=== PATIENT | male | born 1960 | race Caucasian/White ===

== ENCOUNTER 2017-02-26 00:04 | Inpatient (IN) | payer SELFPAY ==
[2017-02-26] VITALS (9 sets, daily range): BP systolic 111–158; BP diastolic 62–85
[~2017-02-26] VITALS: Ht 175.3 cm; Wt 84.1 kg
--- NOTE | ~2017-02-26 | O ---
[place], [place] OPERATIVE NOTE NAME: NELL RAMOS UNIT #: [id number] ROOM: 521 DOCTOR: FINN BEAN PRIYA BIRTHDATE: [birth year] DOS: 02/26/2017 SURGEON: Larry Goldman DPM SERVICE CENTER COORDINATOR: Ranjit Bean DPM resident. 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 PROCEDURES PERFORMED: 1. Incision and drainage of abscess with hallux amputation, right foot. 2. Bone debridement, biopsy, right foot. ANESTHESIA: Local with IV sedation. ESTIMATED BLOOD LOSS: 50 mL. INJECTABLES: None. SPECIMENS: First metatarsal bone sent to pathology and microbiology for further evaluation, proximal base of right hallux sent to pathology microbiology and soft tissue sent to culture and pathology for further evaluation. COMPLICATIONS: None. CONDITION: Stable. INDICATIONS FOR PROCEDURE: This is a 57-year-old male who presented to the emergency department earlier this morning. The patient states he stubbed his toe 3 days ago and started to notice that his toe was becoming black and necrotic. X-rays demonstrated soft tissue emphysema and gas to the first interspace of the right foot. Surgical intervention was deemed necessary. I explained to the patient about the risks, benefits and complications of the procedure. The patient understands and agrees with above. The benefits of removing the infection was greater knee than assessing blood flow at this time. Vascular studies are ordered and will be performed tomorrow. DESCRIPTION OF PROCEDURE: With mild sedation, the patient was transferred from preoperative holding to the operating room and placed on the operating table in supine position. IV sedations anesthesia department. The right lower extremity was then scrubbed, prepped and draped in the usual sterile fashion. Timeout was performed to verify correct patient, procedure and extremity and the following procedure was performed. Attention was directed to the right hallux. The right hallux appeared to be necrotic and black with foul odor noted and localized cellulitis to the right foot. At this time, a fishmouth incision was performed with a #15 blade. It was full thickness in nature and circumferentially around the right hallux. The [place], [place] OPERATIVE NOTE NAME: NELL RAMOS UNIT #: [id number] ROOM: 521 DOCTOR: FINN BEAN, RANJIT BIRTHDATE: [birth year] right toe was disarticulated from the first metatarsal head. At this time, purulent drainage and malodor was noted from the first interspace of the right foot with dusky dark discoloration of tissue was noted as well at the first interspace. Next, utilizing a rongeur, the right hallux bone was sent to pathology and cultured for further evaluation. Next, attention was directed to the amputation site. The first metatarsal head appeared clean, healthy in nature. The cartilage was white and did not have any discoloration noted. At this time, utilizing a rongeur, a portion was sent to path and microbiology for further evaluation. Soft tissue was also sent to pathology and microbiology for further evaluation. Next utilizing 6 liters of saline and gentamicin combined was performed with cysto-tubing to flush out the wound. The wound was then evaluated and compressed. No purulent drainage was noted from the surgical site, the soft tissues appeared to be clean and healthy at this time. Next, retention sutures were placed at the dorsal aspect of the foot with 2-0 Prolene. The surgical site was packed with Betadine solution and 4 x 4s and wrapped with ABDs, Kerlix and Elier wrap. The patient was transferred from operating to PACU with vital signs stable and vascular status intact. He will be returning up to the floor. We planned for delayed primary closure on Monday, pending micro and path results. At this time, he is to be nonweightbearing to the right lower extremity. Recommend infectious disease consult and appreciate recommendations. Continue antibiotics on the floor at this time. We will continue to follow. RANJIT BEAN DPM LARRY GOLDMAN DPM CM:OPRECORD:OPERATIVE NOTE [id number] RANJIT BEAN DPM 02/26/17 1403 interface
--- NOTE | ~2017-02-26 | PR ---
[place], [place] PROGRESS NOTE NAME: NELL RAMOS UNIT #: [id number] ROOM: 521 DOCTOR: JENNIFER PARK DPM BIRTHDATE: [birth year] DOS: 02/27/2017 SUBJECTIVE: The patient is seen status post amputation of right great toe. He states he feels better. Denies fever, chills, nausea, vomiting or night sweats. He had the surgery yesterday. OBJECTIVE: EXTREMITIES: Bandages in place. There is no bleeding or strikethrough drainage noted. Minimal tenderness to palpation. LABORATORY DATA: White blood cell count is down to 11.1 this morning. ASSESSMENT: Status post amputation of right great toe, 1 day postop. PLAN: I discussed with the patient we will maintain the bandage, should be changed in the next day or so. The patient is feeling better, feeling well, only with some mild pain. Continue with antibiotics per Infectious Disease and followup with the patient tomorrow. JENNIFER PARK DPM CM:PNTRANS [id number] JENNIFER PARK DPM 02/27/17 1305 interface
--- NOTE | ~2017-02-26 | PR ---
[place], [place] PROGRESS NOTE [facility]: [facility]OS [id number] UN[facility] #: [id number] ROOM: 521 DOCTOR: BRITTNI BRUMFIELD DPM BIRTHDATE: [birth year] DOS: 02/28/2017 SUBJECTIVE: The patient presents postop day 2 amputation of the right great toe. The patient is resting comfortably in bed with no pain. OBJECTIVE: The dressing is intact with no breakthrough bleeding. The dressing was left intact per Dr. Stahl's orders. The patient has scheduled delayed closure tomorrow. ASSESSMENT: Post incision and drainage with amputation of toe, right hallux. PLAN: Discussed case with Dr. Reyes. She will write the orders for surgery tomorrow, n.p.o. after midnight and the patient will have delayed closure performed tomorrow by Dr. Stahl and Dr. Reyes. BRITTNI BRUMFIELD DPM CM:PNTRANS [id number] BRITTNI BRUMFIELD DPM 02/28/17 1520 interface
--- NOTE | ~2017-02-26 | PR ---
[place], [place] PROGRESS NOTE NAME: NELL RAMOS UNIT #: [id number] ROOM: 521 DOCTOR: BRITTNI BRUMFIELD DPM BIRTHDATE: [birth year] DOS: SUBJECTIVE: The patient presents postop first ray amputation with delayed primary closure. The patient is resting comfortably in bed without pain. OBJECTIVE: The dressing is intact with no breakthrough bleeding. No signs of complication. Negative Homans sign. IMPRESSION: Postop right foot. PLAN: Dressing kept intact per Dr. Goldman orders. The patient will be discharged via clearance by Infectious Disease and Internal Medicine. The patient can be discharged from Podiatry standpoint and will reappoint at the office postoperatively. BRITTNI BRUMFIELD DPM CM:CHANNING [phone] BRITTNI BRUMFIELD DPM 03/02/172156 interface
--- NOTE | ~2017-02-26 | CON ---
[place], [place] REPORT OF CONSULTATION NAME: NELL RAMOS UNIT #: [id number] ROOM: 521 DOCTOR: FINN BEAN PRIYA BIRTHDATE: [birth year] DOS: 02/26/2017 HISTORY OF PRESENT ILLNESS: This is a 57-year-old male who presented to ED last night complaining of nonhealing right great toe. He states that he hit his toe against a bathtub on Monday and ____ to bleed. He applied antibiotic ointment and gauze and tape and took ibuprofen for pain. He denies any pain, but noticed that the toe started to become black. He denies any history of diabetes, but had been diabetic about 20 years ago. He has not been followed up since. He does not follow up with any family and consumer science professor or any other medical physicians at this time. PAST MEDICAL HISTORY: Diabetes mellitus, history of tobacco use. PAST SURGICAL HISTORY: History of femoral fracture. SOCIAL HISTORY: Admits to tobacco use. Denies illicit drug use. Consumes alcohol occasionally. ALLERGIES: No known drug allergies. REVIEW OF SYSTEMS: GENERAL: No fever, chills, nausea, vomiting. HEENT: Denies vision change, blurred vision, nose congestion, throat pain. CARDIOVASCULAR: There is lower extremity edema. Denies chest pain. Denies palpitations. RESPIRATORY: Denies shortness of breath. Denies cough, hemoptysis, wheezing or sputum production. ABDOMINAL: Denies abdominal pain, nausea, vomiting, diarrhea, constipation. GENITOURINARY: Denies dysuria, hematuria, increased frequency or urgency. NEUROLOGIC: Admits to decreased sensation to bilateral lower extremities. Denies lightheadedness or dizziness. PSYCHIATRIC: Reports substance abuse. Denies depression, anxiety. ENDOCRINE: Denies polydipsia, heat intolerance. Denies cold intolerance. SKIN: Admits to ulceration to the right big toe. PHYSICAL EXAMINATION: VITAL SIGNS: Temperature 98.6, pulse 84, respiration 16, blood pressure 134/62. LABORATORY DATA: White count 13.5, hemoglobin 13.5, hematocrit 39.4, platelets 312. FOCUSED PHYSICAL EXAMINATION. VASCULAR: DP and PT pulses are palpable bilateral. CFT is less than 3 seconds to remaining digits 1 through 5 bilateral. Hair is not present to bilateral lower extremities. Skin is warm to warm from the tibial tuberosity to distal digits bilateral. NEUROLOGIC: Decreased sensation noted with [place]ron monofilament to digits 1 through 5 bilateral. Protective sensation is diminished to digits bilateral. Normal muscle tone and symmetry noted to bilateral extremities. MUSCULOSKELETAL: Decreased ankle joint range of motion consistent with equinus [place], [place] REPORT OF CONSULTATION NAME: NELL RAMOS UNIT #: [id number] ROOM: 521 DOCTOR: FINN BEAN PRIYA BIRTHDATE: [birth year] deformity noted. No pain on palpation to the right great toe. DERMATOLOGIC: There is a full thickness ulceration noted to the medial and plantar aspect of the right great toe upon compression. There is seropurulent drainage noted. The toe is necrotic, black in nature. There is positive malodor and positive purulent drainage. There is localized periwound cellulitis noted to the dorsal aspect of the right foot. Positive crepitus and fluctuance noted to the right great toe. DIAGNOSTIC STUDIES: Foot x-rays, soft tissue swelling to great toe noted with soft tissue emphysema. No acute findings of osteomyelitis noted. CT scan demonstrates ulceration to plantar margin of the first digit with evidence of extensive cellulitis and soft tissue gas extending along the plantar aspect of the first digit as well as medial and lateral aspects, compatible with soft tissue gas forming infection. ASSESSMENT: 1. Gas gangrene, right hallux with possible osteomyelitis. 2. Uncontrolled diabetes mellitus with peripheral neuropathy. 3. History of tobacco user. PLAN: 1. The patient is seen and examined. 2. Keep the patient n.p.o. 3. Plan for surgical intervention today at 11:00 a.m. 4. Plan for incision and drainage of deep space abscess with hallux amputation and possible first ray resection. 5. Recommend Infectious Disease consult. 6. Nonweightbearing to the right lower extremity. 7. We will continue to follow on the floor. 8. Discussed with ____ who agrees with above assessment and plan. RANJIT BEAN DPM CM:CONSTR:REPORT OF CONSULTATION 1103 02/26/171922 interface
--- NOTE | ~2017-02-26 | O ---
[place], [place] OPERATIVE NOTE NAME: NELL RAMOS UNIT #: [id number] ROOM: 521 DOCTOR: FINN REYES PRIYA BIRTHDATE: [birth year] DOS: 03/01/2017 SURGEON: Larry Goldman DPM. BUSINESS RISK ANALYST: Ranjit Reyes DPM, resident. PREOPERATIVE DIAGNOSIS: Osteomyelitis, right foot. POSTOPERATIVE DIAGNOSIS: Osteomyelitis, right foot. PROCEDURE PERFORMED: Partial first ray amputation with delayed primary closure, right foot, ANESTHESIA: LMAC. SPECIMENS: First metatarsal head sent to pathology for further evaluation, clean margin sent to pathology for further evaluation. ESTIMATED BLOOD LOSS: 10 mL. INJECTABLES: None. MATERIALS USED: 3-0 Vicryl, 3-0 Prolene. CONDITION: Stable. COMPLICATIONS: None. INDICATIONS FOR PROCEDURE: This is a 57-year-old male who underwent hallux amputation earlier this week. The patient's white count has been trending down. Vitals are stable. His surgical cultures grew out MSSA and Providencia. He is now stabilized for a delayed primary closure with partial first ray amputation. DESCRIPTION OF PROCEDURE: At this time, the patient was transferred from preoperative holding area to the operating room and placed on the operating table in supine position. IV sedation was administered by Anesthesia. Prior to taking the patient in the operating room, the consent form was signed, obtained and reviewed. The patient agrees to procedure and understands the benefits, risks and complications of procedure. At this time, the timeout performed to verify correct patient, procedure and extremity and the following procedure was performed. Attention was directed to the open surgical wound of the right lower extremity where the first metatarsal head was exposed. At this time, utilizing 15 blade, the first metatarsal head was freed up. Next, using power sagittal saw, a first metatarsal head osteotomy was performed from placed on back table. Next, sagittal saw was used to remove another piece of bone to send as clear margin for pathology to evaluate. At this time, no active signs of infection were noted. There was no purulent drainage or malodor. The soft tissues appeared to be ____. The skin edges were freshened up with a #15 blade. At this time, the [place], [place] OPERATIVE NOTE NAME: NELL RAMOS UNIT #: [id number] ROOM: 521 DOCTOR: FINN REYES, RANJIT BIRTHDATE: [birth year] surgical site was flushed with copious amounts of sterile saline. Closure was warranted at this time. A 3-0 Vicryl as was utilized to close the deep structures, 3-0 Prolene was used in horizontal mattress in simple suture fashion. Dressings consisted of Xeroform, 4 x 4's, Kerlix and Elier bandage. The patient was transferred from OR to PACU with vital stable and vascular status intact. He returned back to the floor. He is okay to discharge from Podiatry standpoint at this time. He is to be nonweightbearing to right lower extremity. Appreciate infectious disease recommendations for antibiotic coverage and we will continue on the floor. RANJIT REYES DPM CM:OPRECORD:OPERATIVE NOTE [id number] RANJIT REYES DPM 03/02/17 0313 interface
[2017-02-26 01:16] LABS: HEMATOCRIT 39.5 % (42.0-52.0); HEMOGLOBIN 14.2 g/dl (14.0-18.0); MEAN CELL VOLUME 85.1 fl (80.0-94.0); MEAN CORPUSCULAR HGB 30.6 pg (27.0-31.0); MEAN CORPUSCULAR HGB CONC 35.9 g/dl (33.0-37.0); MEAN PLATELET VOLUME 9.3 fl (9.6-12.3); PLATELET COUNT AUTOMATED 310 10*3/uL (130-400); RED BLOOD COUNT 4.64 10*6/uL (4.50-5.90); RED CELL DISTRI WIDTH 11.6 % (0-14.5); WHITE BLOOD COUNT 13.4 10*3/uL (4.8-10.8)
[2017-02-26 01:32] LABS: ALBUMIN 2.7 gm/dl (3.1-4.5); ALKALINE PHOSPHATASE 119 U/L (45-117); BUN 12 mg/dl (7-24); CHLORIDE 98 mmol/L (98-107); CREATININE 0.84 mg/dL (0.70-1.30); POTASSIUM 3.5 mmol/L (3.5-5.1); SGOT/AST 10 IU/L (3-35); SGPT/ALT 12 U/L (12-78); SODIUM 137 mmol/L (136-145); TOTAL PROTEIN 6.7 gm/dL (6.4-8.2)
[2017-02-26 01:38] LABS: ATYPICAL LYMPHS 1 % (0-0); PLATELET SUFFICIENCY NORMAL (NORMAL); TOTAL CELLS COUNTED 100 #CELLS
[2017-02-26 01:44] LABS: TROPONIN I < 0.015 ng/ml (<0.045)
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
[2017-02-26 05:00] LABS: HEMATOCRIT 39.4 % (42.0-52.0); HEMOGLOBIN 13.5 g/dl (14.0-18.0); MEAN CELL VOLUME 85.3 fl (80.0-94.0); MEAN CORPUSCULAR HGB 29.2 pg (27.0-31.0); MEAN CORPUSCULAR HGB CONC 34.3 g/dl (33.0-37.0); MEAN PLATELET VOLUME 9.2 fl (9.6-12.3); PLATELET COUNT AUTOMATED 312 10*3/uL (130-400); RED BLOOD COUNT 4.62 10*6/uL (4.50-5.90); RED CELL DISTRI WIDTH 11.6 % (0-14.5); WHITE BLOOD COUNT 13.5 10*3/uL (4.8-10.8)
[2017-02-26 05:11] LABS: ACT PARTIAL THROMBO TIME 22.4 SECONDS (20.8-31.5)
[2017-02-26 05:18] LABS: ALBUMIN 2.5 gm/dl (3.1-4.5); ALKALINE PHOSPHATASE 116 U/L (45-117); BUN 13 mg/dl (7-24); CHLORIDE 100 mmol/L (98-107); CHOLESTEROL 153 mg/dL (<200); FREE T4 1.56 ng/dl (0.76-1.46); HDL CHOLESTEROL 25 mg/dl (40-60); LDL CHOLESTEROL 101 mg/dL (9-159); PHOSPHOROUS 2.6 mg/dL (2.5-4.9); POTASSIUM 3.6 mmol/L (3.5-5.1); SGOT/AST 5 IU/L (3-35); SGPT/ALT 12 U/L (12-78); SODIUM 138 mmol/L (136-145); TOTAL PROTEIN 6.6 gm/dL (6.4-8.2); TRIGLYCERIDES 134 mg/dl (<150); VLDL CHOLESTEROL 27 mg/dL (6-40)
[2017-02-26 05:20] LABS: PLATELET SUFFICIENCY NORMAL (NORMAL); TOTAL CELLS COUNTED 100 #CELLS
--- NOTE | 2017-02-26 07:00 | NUR ---
Shift chart check completed.
--- NOTE | 2017-02-26 07:09 | NUR ---
DR BRAGG NOTIFIED OF CONSULT. POSSIBLE SURGERY DURING LATE AM.
--- NOTE | 2017-02-26 08:00 | NUR ---
MED REC UPDATED - PATIENT TAKES NO HOME MEDICATIONS - HAS NOT SEEN A DOCTOR IN OVER 20 YEARS
--- NOTE | 2017-02-26 08:23 | NUR ---
MAINTENANCE IVF FLUIDS INFUSING AFTER CT FOOT DONE. IV ANTIBIOTICS INFUSING. PATIENT HAS NO FEELING IN THE FOOT. DRESSING APPLIED ON NIGHT TURN REMAINS INTACT. SOME NUMBNESS TO BILAT HANDS. VSS. POSSIBLE SURGERY THIS AM PER DR DYE.
[2017-02-26 08:56] LABS: VITAMIN D, 25-HYDROXY 19.9 ng/mL (30-100)
--- NOTE | 2017-02-26 09:11 | NUR ---
FINAL REPORT RECEIVED FROM [facility]. SCHEDULED FOR SURGERY FOR TODAY @ 1100.
--- NOTE | 2017-02-26 09:37 | NUR ---
READY FOR SURGERY. PATIENT SPOKE WITH HIS DAUGHTER AND SHE IS AWARE OF SURGERY.
--- NOTE | 2017-02-26 10:28 | NUR ---
MAGGIEICLEANSE BATH DONE & BED CHANGED. TUBIGRIPS TO BILAT LEGS. IV started right hand with #22 protective cath after 1 attempts. Site prepped with Chloroprep. Sterile dressing applied. Patient tolerated procedure well. LEFT BALL OF FOOT HAS HARD CALLOUS & SOME DRY SKIN TO SURROUNDING AREA THAT PER THE PATIENT " I GET THAT ALL THE TIME FROM MY BOOTS." NO SIGNS OF REDNESS/DRAINAGE. RT GREAT TOE HAS FOUL ODOR W/ SCANT BLOODY FROM UNDERSIDE OF GREAT TOE. TIP OF THE TOE TO MID JOINT AND ABOUT HALF OF WIDTH IS A MILKY SCHWARZ COLORED SKIN. REST OF TOP OF TOE IS BLACK/NECROTIC. FROM JOINT TO @ 3CM DOWN FOOT (ALL ACROSS TOP OF FOOT) IS RED & WARM. BOTTOM OF FOOT IS NORMAL COLOR. PER THE PATIENT HE HAS MINIMAL FEELING TO IT. MARCUS BOURNE
--- NOTE | 2017-02-26 11:03 | NUR ---
PATIENT TO SURGERY VIA BED WITH SIGNIFICANT OTHER & 1 OTHER PRESENT. REPORT TO OR STAFF & POST PICTURES PRIOR TO DRESSING THE WOUND REQUESTED.
--- NOTE | 2017-02-26 12:52 | NUR ---
REPORT RECEIVED FROM SURGERY & THEY ALREADY TOOK THE PATIENT TO THE 5TH FLOOR
--- NOTE | 2017-02-26 13:05 | NUR ---
RECIEVED FROM OR AFTER RIGHT GREAT TOE AMPUTATION. DRESSING DRY AND INTACT. PT DENIES PAIN. WILL CONTINUE TO MONITOR.
--- NOTE | 2017-02-26 13:27 | NUR ---
DR EPREZ ANSWERING SERVICE NOTIFIED OF CONSULT.
--- NOTE | 2017-02-26 13:40 | NUR ---
DR PEREZ RETURNED CALLED AND NOTIFIED OF CONSULT.
--- NOTE | 2017-02-26 17:37 | NUR ---
MEDICATED PO NORCO FOR C/O PAIN IN RIGHT FOOT. PT RATES PAIN 10/10. WILL CONTINUE TO MONITOR.
--- NOTE | 2017-02-26 18:35 | NUR ---
PT STATES NORCO EFFECTIVE FOR PAIN.
--- NOTE | 2017-02-26 20:20 | NUR ---
MEDICATED WITH TYLENOL PER PRN ORDER FOR C/O HEADACHE.
--- NOTE | 2017-02-26 22:00 | NUR ---
TYLENOL EFFECTIVE FOR HEADACHE
[2017-02-27] VITALS: BP 135/66
[2017-02-27 06:25] LABS: BASO % 0.4 % (0.0-1.0); EOS # 0.2 10*3/uL (0.0-0.4); EOS % 1.6 % (1.0-4.0); HEMATOCRIT 35.2 % (42.0-52.0); HEMOGLOBIN 12.1 g/dl (14.0-18.0); LYMPH # 2.4 10*3/uL (1.3-4.4); LYMPH % 21.3 % (27.0-41.0); MEAN CELL VOLUME 86.9 fl (80.0-94.0); MEAN CORPUSCULAR HGB 29.9 pg (27.0-31.0); MEAN CORPUSCULAR HGB CONC 34.4 g/dl (33.0-37.0); MONO # 1.3 10*3/uL (0.1-1.0); MONO % 11.6 % (3.0-9.0); NEUT # 7.2 10*3/uL (2.3-7.9); NEUT % 64.4 % (47.0-73.0); PLATELET COUNT AUTOMATED 310 10*3/uL (130-400); RED BLOOD COUNT 4.05 10*6/uL (4.50-5.90); RED CELL DISTRI WIDTH 11.8 % (0-14.5); WHITE BLOOD COUNT 11.1 10*3/uL (4.8-10.8)
[2017-02-27 06:43] LABS: ALBUMIN 2.2 gm/dl (3.1-4.5); ALKALINE PHOSPHATASE 78 U/L (45-117); BUN 6 mg/dl (7-24); CHLORIDE 103 mmol/L (98-107); CREATININE 0.62 mg/dL (0.70-1.30); MAGNESIUM 1.8 mg/dL (1.5-2.1); PHOSPHOROUS 2.4 mg/dL (2.5-4.9); POTASSIUM 3.6 mmol/L (3.5-5.1); SGOT/AST 10 IU/L (3-35); SGPT/ALT 11 U/L (12-78); SODIUM 138 mmol/L (136-145); TOTAL PROTEIN 5.8 gm/dL (6.4-8.2)
[2017-02-27 08:00] VITALS: BP 120/58
--- NOTE | 2017-02-27 08:00 | NUR ---
PATIENT RADIOLOGY FOR ULTRASOUND.
--- NOTE | 2017-02-27 09:00 | NUR ---
Mold Yard Worker in to talk to patient. Patient states lives at home with girlfriend. There are few steps in the home. 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 case management will follow for any home needs. MEENA MEJIA
--- NOTE | 2017-02-27 10:00 | NUR ---
AM MEDS TAKEN.
--- NOTE | 2017-02-27 10:09 | NUR ---
PHYSICAL THERAPY Physical Therapy Evaluation completed this date. See eval document for complete details. Will begin PT intervention to address the impairments of decreased transfer safety and difficulty ambulating during inpnt stay. Recommend home as able on d/[place] [id number] based on chart review and PT eval. Danelle Ibarra, PT
--- NOTE | 2017-02-27 11:18 | NUR ---
Nutritional Support Services Note: Discussing with pt 1800cal diabetic diet. Diet copy given to pt. Pt was told he was a borderline diabetic 20 years ago and never followed through. Encouraged proper portion sizes and healthier choices on a daily basis. Pt listened. No questions at this time. Encouraged follow up if needed. Lesley Miranda
[2017-02-27 12:00] VITALS: BP 100/40; BP 140/76
--- NOTE | 2017-02-27 12:53 | NUR ---
PHYSICAL THERAPY Sam was seen this PM 1:1 for his therapy session, present. Sam ask if i could come back tomorrow that he's just to tired to go again now and just did not want to go. Said that he would get up tomorrow. KIM WYMAN [employer] COUNSELOR.
--- NOTE | 2017-02-27 14:52 | NUR ---
MEDICATED WITH NORCO FOR RIGHT FOOT PAIN.
[2017-02-27 16:00] VITALS: BP 146/70
--- NOTE | 2017-02-27 16:00 | NUR ---
NO FURTHER COMPLAINTS OF PAIN.
[2017-02-27 20:00] VITALS: BP 136/70
--- NOTE | 2017-02-27 23:28 | NUR ---
PATIENT RESTING IN BED WITH NO NEEDS MADE. ANTIBIOTICS INFUSING WITHOUT DIFFICULTY. BED IN LOWEST POSITION, CALL LIGHT IN REACH
[2017-02-28] VITALS: BP 137/72
[2017-02-28 06:20] LABS: BASO % 0.4 % (0.0-1.0); EOS # 0.2 10*3/uL (0.0-0.4); HEMATOCRIT 36.7 % (42.0-52.0); HEMOGLOBIN 12.7 g/dl (14.0-18.0); LYMPH # 2.8 10*3/uL (1.3-4.4); LYMPH % 29.2 % (27.0-41.0); MEAN CELL VOLUME 85.7 fl (80.0-94.0); MEAN CORPUSCULAR HGB 29.7 pg (27.0-31.0); MEAN CORPUSCULAR HGB CONC 34.6 g/dl (33.0-37.0); MONO % 10.8 % (3.0-9.0); NEUT # 5.5 10*3/uL (2.3-7.9); NEUT % 56.9 % (47.0-73.0); PLATELET COUNT AUTOMATED 327 10*3/uL (130-400); RED BLOOD COUNT 4.28 10*6/uL (4.50-5.90); RED CELL DISTRI WIDTH 11.8 % (0-14.5); WHITE BLOOD COUNT 9.6 10*3/uL (4.8-10.8)
[2017-02-28 06:46] LABS: ALBUMIN 2.3 gm/dl (3.1-4.5); BUN 5 mg/dl (7-24); CHLORIDE 101 mmol/L (98-107); POTASSIUM 3.6 mmol/L (3.5-5.1); SGPT/ALT 12 U/L (12-78); SODIUM 138 mmol/L (136-145)
[2017-02-28 06:48] LABS: ALKALINE PHOSPHATASE 90 U/L (45-117); CREATININE 0.69 mg/dL (0.70-1.30); SGOT/AST 10 IU/L (3-35); TOTAL PROTEIN 6.5 gm/dL (6.4-8.2)
[2017-02-28 08:00] VITALS: BP 142/70
--- NOTE | 2017-02-28 09:00 | NUR ---
case management visits with patient, patient having a surgery tomorrow, case management will follow
--- NOTE | 2017-02-28 09:08 | NUR ---
PHYSICAL THERAPY Sam seen this AM 1:1 for his therapy session. Pt supine in bed, transfer supine/sit, sitting balance independent, sit/stand, standing balance with standard walker MIN A X 1. Followed by gait total 50' X 1, with S/W, Pt has IV Pole, and did well with NWB right LE and CGA X 1, no LOB with verbal cueing for gait, walker turn safety. Prepared Pt room for up in his bedside chair, call light, phone and having no complaiont. KIM WYMAN PATIENT PLACEMENT COORDINATOR.
--- NOTE | 2017-02-28 10:00 | NUR ---
AM MEDS TAKEN.
[2017-02-28 12:00] VITALS: BP 151/71
--- NOTE | 2017-02-28 14:05 | NUR ---
RESTING WITH NO DISTRESS. DRESSING TO RIGHT FOOT DRY AND INTACT.
[2017-02-28 16:00] VITALS: BP 145/74
[2017-02-28 16:02] VITALS: BP 140/75
--- NOTE | 2017-02-28 19:35 | NUR ---
PT MEDICATED WITH PO NORCO PER PRN ORDER FOR C/O RIGHT FOOT PAIN. WILL MONITOR EFFECTIVENESS. CALL LIGHT LEFT IN REACH.
--- NOTE | 2017-02-28 19:36 | NUR ---
PATIENT REQUESTED AND RECEIVED PO NORCO PER PRN ORDER FOR C/O RIGHT FOOT PAIN 11/21. WILL MONITOR EFFECTIVENESS. CALL LIGHT LEFT IN REACH.
--- NOTE | 2017-02-28 19:41 | NUR ---
SPOKE TO AT THIS TIME. PER , PATIENT TO HAVE SURGERY TOMORROW AT NOON. NEW ORDERS RECEIVED.
[2017-02-28 20:00] VITALS: BP 133/84
--- NOTE | 2017-02-28 20:11 | NUR ---
EARLIER MEDICATION EFFECTIVE PER PATIENT. WILL CONTINUE TO MONITOR. CALL LIGHT LEFT IN REACH.
[2017-03-01] VITALS (8 sets, daily range): BP systolic 101–170; BP diastolic 55–93
--- NOTE | 2017-03-01 03:01 | NUR ---
PATIENT ASLEEP IN BED AT THIS TIME. RESPIRATIONS EASY. NO S/S OF DISTRESS NOTED. WILL MONITOR. CALL LIGHT IN REACH.
--- NOTE | 2017-03-01 03:41 | NUR ---
SPOKE TO REGARDING ORDER FOR BSG CHECKS. CURRENTLY ORDERED Q4H. PER , NICOLE TO CHANGE TO [facility].
[2017-03-01 06:20] LABS: BASO % 0.3 % (0.0-1.0); EOS # 0.2 10*3/uL (0.0-0.4); EOS % 1.9 % (1.0-4.0); HEMATOCRIT 37.8 % (42.0-52.0); LYMPH % 23.2 % (27.0-41.0); MEAN CELL VOLUME 84.8 fl (80.0-94.0); MEAN CORPUSCULAR HGB 29.1 pg (27.0-31.0); MEAN CORPUSCULAR HGB CONC 34.4 g/dl (33.0-37.0); MEAN PLATELET VOLUME 8.7 fl (9.6-12.3); NEUT # 5.5 10*3/uL (2.3-7.9); NEUT % 62.9 % (47.0-73.0); PLATELET COUNT AUTOMATED 325 10*3/uL (130-400); RED BLOOD COUNT 4.46 10*6/uL (4.50-5.90); RED CELL DISTRI WIDTH 11.6 % (0-14.5); WHITE BLOOD COUNT 8.7 10*3/uL (4.8-10.8)
[2017-03-01 06:51] LABS: BUN 5 mg/dl (7-24); CHLORIDE 101 mmol/L (98-107); CREATININE 0.63 mg/dL (0.70-1.30); POTASSIUM 3.8 mmol/L (3.5-5.1); SODIUM 139 mmol/L (136-145)
--- NOTE | 2017-03-01 09:00 | NUR ---
case management visits with patient, patient denies any home needs at this time
--- NOTE | 2017-03-01 09:28 | NUR ---
PHYSICAL THERAPY Pt seen this AM 1:1 and was up in his bedside chair. Transfer sit/stand supervision X 1. Gait total 55' X 1, with standard walker and CG X 1, no LOB with NWB right foot no LOB. KIM WYMAN COIL WINDER STRAP.
--- NOTE | 2017-03-01 11:18 | NUR ---
PATIENT TO OR VIA BED.
--- NOTE | 2017-03-01 13:12 | NUR ---
RECEIVED REPORT FROM OR.
--- NOTE | 2017-03-01 13:31 | NUR ---
PATIENT RETURNED FROM OR.
--- NOTE | 2017-03-01 18:14 | NUR ---
PATIENT RESTING. DRESSING TO RIGHT FOOT DRY AND INTACT.
--- NOTE | 2017-03-01 18:54 | NUR ---
MEDICATED FOR RIGHT FOOT PAIN HE RATES A 6 ON THE PAIN SCALE.
--- NOTE | 2017-03-01 20:05 | NUR ---
PATIENT IS AWAKE, ALERT AND ORIENTED X3. PLEASANT AND COOPERATIVE WITH ASSESSMENT. LUNGS ARE DIMINISHED THROUGHOUT LUNGFIELDS. ROOM AIR. ABDOMEN IS OBESE, NORMOACTIVE BOWEL SOUNDS X 4 QUADS. NO EDEMA TO LLL, PPP. RIGHT LOWER EXTREMITY HAS A THICK BULKY CLEAN, DRY AND INTACT DRESSING. PER PATIENT HE IS HAVING SHARP STABBING PAIN LIKE LIGHTENING TO POST OP AREA, PRN MORPHINE GIVEN AT THIS TIME. CALL LIGHT IS IN REACH.
--- NOTE | 2017-03-01 21:05 | NUR ---
PATIENT RESTING IN BED WITH EYES CLOSED BILATERALLY. RESPITATIONS ARE EASY AND REGULAR. NO S/S OF PAIN OR DISOCMFORT. MORPHINE EFFECTIVE AT THIS TIME. CALL LIGHT IS IN REACH.
--- NOTE | 2017-03-01 23:14 | NUR ---
YARIELLATA STATES THAT HE IS HAVING THAT SHARP PAIN AGAIN IN HIS RIGHT FOOT POST OP REGION, DESCRIBES PAIN SHOOTING, RATES THIS PAIN A 7/10 ON PAIN SCALE. PRN NORCO GIVEN AT THIS TIME. CALL LIGHT IS IN REACH.
[2017-03-02] VITALS: BP 117/72
--- NOTE | 2017-03-02 02:47 | NUR ---
PATIENT REQUESTED PAIN MEDICATION FOR C/O PAIN IN HIS RIGHT GREAT TOE REGION , POST OP, RATES HIS PAIN A 8/10 ON PAIN SCALE. DESCRIBES PAIN THROBBING AND SHARP. PRN MORPHINE GIVEN AT THIS TIME. CALL LIGHT IS IN REACH.
--- NOTE | 2017-03-02 03:45 | NUR ---
PATIENT RESTING IN BED WITH EYES CLOSED BILATERALLY. RESPIRATIONS ARE EASY AND REGULAR. NO S/S OF PAIN OR DISCOMFORT. MORPHINE EFFECTIVE AT THIS TIME. CALL LIGHT IS IN REACH.
--- NOTE | 2017-03-02 06:00 | NUR ---
PATIENT AROUSES EASILY FOR BEDSIDE GLUCOSE CHECK AT THIS TIEM. PATIENT VERBALIZED C/O PAIN IN HIS RIGHT GREAT TOE POST OP AREA. PATIENT DESCRIBES THIS PAIN SHARP AND THROBBING. RATES HIS PAIN 7/10 ON PAIN SCALE. PRN NORCO GIVEN AT THIS TIME. CALL LIGHT IS IN REACH.
[2017-03-02 06:47] LABS: HEMATOCRIT 37.1 % (42.0-52.0); HEMOGLOBIN 12.7 g/dl (14.0-18.0); MEAN CELL VOLUME 85.1 fl (80.0-94.0); MEAN CORPUSCULAR HGB 29.1 pg (27.0-31.0); MEAN CORPUSCULAR HGB CONC 34.2 g/dl (33.0-37.0); MEAN PLATELET VOLUME 8.8 fl (9.6-12.3); PLATELET COUNT AUTOMATED 353 10*3/uL (130-400); RED BLOOD COUNT 4.36 10*6/uL (4.50-5.90); RED CELL DISTRI WIDTH 11.7 % (0-14.5); WHITE BLOOD COUNT 14.2 10*3/uL (4.8-10.8)
[2017-03-02 07:08] LABS: BASOPHILS 1 % (0-1); PLATELET SUFFICIENCY NORMAL (NORMAL); TOTAL CELLS COUNTED 100 #CELLS
[2017-03-02 07:34] LABS: BUN 9 mg/dl (7-24); CHLORIDE 100 mmol/L (98-107); CREATININE 0.71 mg/dL (0.70-1.30); POTASSIUM 3.6 mmol/L (3.5-5.1); SODIUM 138 mmol/L (136-145)
[2017-03-02 08:00] VITALS: BP 117/57
--- NOTE | 2017-03-02 08:46 | NUR ---
MORPHINE GIVEN PER MAR FOR C/O PAIN TO RIGHT FOOT/ TOE AMPUTATION.12/22.
--- NOTE | 2017-03-02 09:20 | NUR ---
PHYSICAL THERAPY Pt having his breakfast this therapy visit. KIM WYMAN LIVESTOCK SPECULATOR.
--- NOTE | 2017-03-02 10:49 | NUR ---
PT RETURNED TO FLOOR VIA WHEELCHAIR FROM PICC PLACEMENT PROCEDURE.
--- NOTE | 2017-03-02 10:51 | NUR ---
PHYSICAL THERAPY Back to treat Sam and Pt off the floor went down for his picc line. KIM WYMAN PIE BOTTOMER.
[2017-03-02 12:00] VITALS: BP 131/66
--- NOTE | 2017-03-02 12:30 | NUR ---
SPOKE TO BUSINESS OBJECTS AND STATED WE WHERE AWAITING DR DYE TO REMOVE POST OP DRESSING AND THAT I WILL GET ORDERS FOR DRESSING CHANGES AT THAT TIME AND PHOTOGRAPH HIS RIGHT FOOT.
--- NOTE | 2017-03-02 12:52 | NUR ---
PHYSICAL THERAPY Back this PM to see Jostin Vargas supine in bed. All transfers were independnet. Gait with standard walker and NWB right LE, 85' supervision X 1, no LOB and back supine in bed, family in. KIM WYMAN JALOUSIES INSTALLER.
--- NOTE | 2017-03-02 14:05 | NUR ---
DR CATALAN ROUNDED, NO NEW ORDERS. STATED HE WOULD ROUNMD AGAIN WITH DR Michael ALVAREZ.
[2017-03-02] MEDS ORDERED: CEFTRIAXON2 GM/50 ML IV (14:10)
--- NOTE | 2017-03-02 14:17 | NUR ---
PT WILL BE DC TODAY AND COME BACK TO [facility] DAILY AT 10AM FOR IV ROCEPHIN FOR 6 WEEKS. LORENE IN CENTRAL SCHEDULING NOTIFIED AND PAPERWORK AND SCRIPT FAXED TO HER. PT INFORMED AND WILL BE HERE TOMORROW AT 10AM.
--- NOTE | 2017-03-02 14:35 | NUR ---
Called to patients room to discuss process for medicaid. Provided patient and patients girlfriend at bedside an application as well as the website to apply for medicaid.
--- NOTE | 2017-03-02 15:08 | NUR ---
NOTIFIED DR CATALAN OF TISSUE RESULTS AND ADVISED HIM I HAD A D/C ORDER AND VOICED MY CONCERNS AND ALSO ADVISED WE WERE AWAITING DR DYE TO ROUND AND REMOVE POST OP DRESSING CHANGE ORDERS. EDUCATION REGARDING DRESSING CHANGES WILL NEED TO BE PROVIDED TO PRIOR TO D/C.
[2017-03-02] MEDS ORDERED: Vitamin D PO (15:37)
[2017-03-02] MEDS ORDERED: LEVEMIR100 UNIT/1 SC (15:37)
[2017-03-02 16:00] VITALS: BP 124/85
--- NOTE | 2017-03-02 17:01 | NUR ---
SPOKE TO DR SALAS REGARDING PT BEING DISCHARGED AND F/U ORDERS RECIEVED. DRESSING TO STAY INTACT UNTIL F/U WITH HIM IN 1 WEEK.
--- NOTE | 2017-03-02 18:00 | NUR ---
DIABETIC TEACHING PROVIDEDC FOR FERMIN. PT ABLE TO PROVIDE TEACHBACK. FAMILY RESPONSIVE TO EDUCATION WELL.
--- NOTE | 2017-03-02 18:01 | NUR ---
SPOKE TO DR BOYD REGARDINMG DRESSING CHANGES AND PT BEING D/C TODAY. DR BOYD STATED THAT THE DRESSING IS TO STAY IN PLACE FOR 1 WEEK AND HE CAN F/U WITH HIM IN OFFICE. I PROVIDED PT WITH OFFICE NUMBER AND ADVISED HIM TO CALL IN AM FOR AN APPT. NO PICTURES WHERE TAKEN , DR DIDN'T WANT DRESSING REMOVED.
--- NOTE | 2017-03-02 18:44 | NUR ---
Discharge instructions reviewed with patient/family. Patient receptive and verbalizes understanding. Follow-up care arranged. Written instructions given to patient/family. AARON CASTILLO
--- NOTE | 2017-03-03 08:05 | NUR ---
PHYSICAL THERAPY CO-SIGN I approve of the Phyical Therapy notes written above. CATALINA HERNANDEZ PT
== END 2017-03-02 18:49 | disposition home or self-care (01) | DRG 853 ==
LOC: ED 00:04 → 5E 02:21 → EDHOLD 02:21 → ICCU 02:33 → 5E 12:52
PROVIDERS: Hospitalist; Internal Medicine; Nurse Practitioner Family; ADMIT Internal Medicine
PROC: 0Y6P0Z0 Detachment at Right 1st Toe, Complete, Open Approach (ICD-10-PCS; principal; 2017-02-26)
PROC: 0QBN0ZX Excision of Right Metatarsal, Open Approach, Diagnostic (ICD-10-PCS; 2017-02-26)
PROC: 02HV33Z Insertion of Infusion Device into Superior Vena Cava, Percutaneous Approach (ICD-10-PCS; 2017-03-02)
DX: A41.9 Sepsis, unspecified organism (principal); E43 Unspecified severe protein-calorie malnutrition; I96 Gangrene, not elsewhere classified; E11.52 Type 2 diabetes mellitus with diabetic peripheral angiopathy with gangrene; E11.42 Type 2 diabetes mellitus with diabetic polyneuropathy; L03.115 Cellulitis of right lower limb; M86.8X7 Other osteomyelitis, ankle and foot; E11.69 Type 2 diabetes mellitus with other specified complication; R65.20 Severe sepsis without septic shock; E55.9 Vitamin D deficiency, unspecified; Z71.6 Tobacco abuse counseling; E66.3 Overweight; E11.65 Type 2 diabetes mellitus with hyperglycemia; B95.61 Methicillin susceptible Staphylococcus aureus infection as the cause of diseases classified elsewhere; F17.210 Nicotine dependence, cigarettes, uncomplicated; S98.111A Complete traumatic amputation of right great toe, initial encounter; Z82.49 Family history of ischemic heart disease and other diseases of the circulatory system; Z80.1 Family history of malignant neoplasm of trachea, bronchus and lung; X58.XXXA Exposure to other specified factors, initial encounter; Y93.89 Activity, other specified; Y92.89 Other specified places as the place of occurrence of the external cause; Y99.8 Other external cause status; Z68.27 Body mass index [BMI] 27.0-27.9, adult

== ENCOUNTER → 2017-03-08 | Outpatient (CLI) | payer SELFPAY ==
[~2017-03-08] MED LIST: CEFTRIAXON2 GM/50 ML IV; LEVEMIR100 UNIT/1 SC; Vitamin D PO
== END | disposition home or self-care (01) ==
LOC: RESCLI 03:36
DX: E11.65 Type 2 diabetes mellitus with hyperglycemia (principal); R00.0 Tachycardia, unspecified; M86.271 Subacute osteomyelitis, right ankle and foot; E55.9 Vitamin D deficiency, unspecified; Z72.0 Tobacco use; E43 Unspecified severe protein-calorie malnutrition; E66.3 Overweight; Z89.421 Acquired absence of other right toe(s)

== ENCOUNTER → 2017-03-29 | Outpatient (CLI) | payer SELFPAY ==
[~2017-03-29] MED LIST changes: +ASPIRIN81 M1 PO; +LIPITOR40 MG PO; +METFORMIN1000 MG PO; +NAPROSYN500 MG PO
== END ==
LOC: RESCLI 00:59
DX: M86.271 Subacute osteomyelitis, right ankle and foot (principal); E11.65 Type 2 diabetes mellitus with hyperglycemia; E55.9 Vitamin D deficiency, unspecified; E66.3 Overweight; E43 Unspecified severe protein-calorie malnutrition; Z72.0 Tobacco use

== ENCOUNTER → 2017-06-26 | Outpatient (CLI) | payer OTHER ==
[2017-06-26 16:05] LABS: BASO # 0.1 10*3/uL (0.0-0.1); BASO % 0.7 % (0.0-1.0); EOS # 0.7 10*3/uL (0.0-0.4); HEMATOCRIT 47.6 % (42.0-52.0); HEMOGLOBIN 16.4 g/dl (14.0-18.0); LYMPH # 3.3 10*3/uL (1.3-4.4); MEAN CELL VOLUME 86.2 fl (80.0-94.0); MEAN CORPUSCULAR HGB 29.7 pg (27.0-31.0); MEAN CORPUSCULAR HGB CONC 34.5 g/dl (33.0-37.0); MONO # 1.2 10*3/uL (0.1-1.0); MONO % 11.3 % (3.0-9.0); NEUT # 5.6 10*3/uL (2.3-7.9); NEUT % 51.3 % (47.0-73.0); PLATELET COUNT AUTOMATED 247 10*3/uL (130-400); RED BLOOD COUNT 5.52 10*6/uL (4.50-5.90); RED CELL DISTRI WIDTH 12.9 % (0-14.5)
[2017-06-26 16:28] LABS: ALKALINE PHOSPHATASE 103 U/L (45-117); BUN 16 mg/dl (7-24); CHLORIDE 99 mmol/L (98-107); CREATININE 0.65 mg/dL (0.70-1.30); POTASSIUM 4.1 mmol/L (3.5-5.1); SGOT/AST 16 IU/L (3-35); SGPT/ALT 33 U/L (12-78); SODIUM 137 mmol/L (136-145); TOTAL PROTEIN 7.4 gm/dL (6.4-8.2)
== END | disposition home or self-care (01) ==
LOC: LAB 14:37
PROVIDERS: Internal Medicine
DX: E11.65 Type 2 diabetes mellitus with hyperglycemia (principal)

== ENCOUNTER → 2017-06-27 | Outpatient (CLI) | payer OTHER | END | disposition home or self-care (01) | LOC: RESCLI 03:13 | DX: H61.22 Impacted cerumen, left ear (principal) ==

== ENCOUNTER → 2017-07-04 | Outpatient (CLI) | payer OTHER | END | disposition home or self-care (01) | LOC: RESCLI 03:49 | DX: I10 Essential (primary) hypertension (principal); H61.21 Impacted cerumen, right ear ==

== ENCOUNTER → 2017-08-23 | Outpatient (CLI) | payer OTHER ==
[2017-08-23 11:06] LABS: HEMATOCRIT 44.9 % (42.0-52.0); HEMOGLOBIN 15.3 g/dl (14.0-18.0); MEAN CELL VOLUME 87.7 fl (80.0-94.0); MEAN CORPUSCULAR HGB 29.9 pg (27.0-31.0); MEAN CORPUSCULAR HGB CONC 34.1 g/dl (33.0-37.0); MEAN PLATELET VOLUME 9.7 fl (9.6-12.3); RED BLOOD COUNT 5.12 10*6/uL (4.50-5.90); RED CELL DISTRI WIDTH 13.2 % (0-14.5); WHITE BLOOD COUNT 8.1 10*3/uL (4.8-10.8)
[2017-08-23 11:30] LABS: ALBUMIN 4.2 gm/dl (3.1-4.5); ALKALINE PHOSPHATASE 91 U/L (45-117); BUN 18 mg/dl (7-24); CHLORIDE 100 mmol/L (98-107); CHOLESTEROL 195 mg/dL (<200); CREATININE 0.79 mg/dL (0.70-1.30); HDL CHOLESTEROL 36 mg/dl (40-60); LDL CHOLESTEROL 117 mg/dL (9-159); POTASSIUM 4.3 mmol/L (3.5-5.1); SGOT/AST 11 IU/L (3-35); SGPT/ALT 23 U/L (12-78); SODIUM 138 mmol/L (136-145); TOTAL PROTEIN 7.5 gm/dL (6.4-8.2); TRIGLYCERIDES 209 mg/dl (<150); VLDL CHOLESTEROL 42 mg/dL (6-40)
== END | disposition home or self-care (01) ==
LOC: LAB 10:20
PROVIDERS: Family Medicine
DX: Z12.5 Encounter for screening for malignant neoplasm of prostate (principal); E78.00 Pure hypercholesterolemia, unspecified; I10 Essential (primary) hypertension; E11.9 Type 2 diabetes mellitus without complications; F17.200 Nicotine dependence, unspecified, uncomplicated

== ENCOUNTER 2017-10-03 16:44 | Inpatient (IN) | payer OTHER ==
[~2017-10-03] VITALS: Ht 175.3 cm; Wt 81.6 kg
--- NOTE | ~2017-10-03 | PR ---
[place], [place] PROGRESS NOTE [id number] UNIT #: [id number] ROOM: 516 DOCTOR: CLAIRE HINDS MD BIRTHDATE: [birth year] DOS: 10/05/2017 SUBJECTIVE: The patient is doing well after distal transmetatarsal amputation of the right foot for osteomyelitis, severe soft tissue infection with abscess formation. The patient says he is doing better. OBJECTIVE: GENERAL APPEARANCE: The patient is alert and oriented x 3, in no visible distress. VITAL SIGNS: Blood pressure 132/68, heart rate of 87 beats per minute, breathing normally, afebrile. HEENT AND NECK: Exam within normal limits. CARDIOVASCULAR SYSTEM: Heart rate is regular in rate and rhythm. S1 and S2 normally audible. LUNGS: Clear to auscultation. ABDOMEN: Soft, nontender. No obvious organomegaly. Bowel sounds are present. EXTREMITIES: Without significant cyanosis or edema. The patient has a surgical dressing on his foot after surgery. IMPRESSION AND PLAN: 1. The patient is status post transmetatarsal amputation of the right foot for osteomyelitis, cellulitis, abscess formation and patient also is status post incision and drainage of the abscesses and he is feeling well. 2. Type 2 diabetes mellitus. Blood sugar is being monitored and treated and reasonably controlled. He is off metformin because of surgery. CLAIRE HINDS MD CM:PNTRANS [phone] CLAIRE HINDS MD 10/06/17 0147 interface
--- NOTE | ~2017-10-03 | PR ---
[place], [place] [facility]GRESS [id number] UN[facility] #: [id number] ROOM: 516 DOCTOR: BRITTNI BRUMFIELD DPM BIRTHDATE: [birth year] DOS: 10/05/2017 SUBJECTIVE: The patient is seen postop incision and drainage of transmetatarsal amputation of the right foot. The patient has some mild discomfort at this time. OBJECTIVE: Upon removal of the dressing and packing. Incision site is well coapted. Sutures intact. The centralized TMA site has open wound still noted upon removal of packing. There were no further signs of abscess. No purulent drainage or foul odor. No ascending cellulitis. The patient's WBC was 10.5 this morning. Blood cultures were negative. ASSESSMENT: Post-transmetatarsal amputation, right foot and post-abscess diabetes. PLAN: Evaluation and management. Remove dressing and packing. Applied wet to dry dressing temporarily. Ordered wound VAC at 125 mmHg, continuous, change every 3 days. Continue antibiotics per Infectious Disease. We will follow the patient tomorrow. BRITTNI BRUMFIELD DPM CM:PNTRANS 1144 BRITTNI BRUMFIELD DPM 10/05/17 2311 interface
--- NOTE | ~2017-10-03 | PR ---
[place], [place] PROGRESS NOTE [id number] #: [id number] ROOM: 516 DOCTOR: BRITTNI BRUMFIELD DPM BIRTHDATE: [birth year] DOS: 10/10/2017 SUBJECTIVE: The patient was seen for followup of osteomyelitis with abscess of the right foot, also has a thickened callus to the left great toe and abrasion of the third left toe. OBJECTIVE: Wound VAC is intact with no proximal cellulitis, decreased pain, wound VAC intact and functioning properly. There is a hyperkeratotic lesion, medial left hallux, abrasion to the third left toe. No signs of infection, left foot. ASSESSMENT: Hyperkeratotic lesion, first left toe; abrasion, third left toe; osteomyelitis, right foot. PLAN, EVALUATION AND MANAGEMENT: Continue wound VAC. I did not bring instrumentation today with me to be able to debride the left hallux. The patient is supposed to go home today and will be debrided in the office tomorrow. If not, we will debride tomorrow in-house if he is still at the hospital. Discussed the case with Dr. Goldman who will follow with the patient either in the office or at the hospital tomorrow. We will recheck the first and third left toes and the wound of the right foot. BRITTNI BRUMFIELD DPM CM:CHANNING [id number] BRITTNI BRUMFIELD DPM 10/11/17 0106 interface
--- NOTE | ~2017-10-03 | DS ---
[place], [place] DISCHARGE SUMMARY NAME: NELL RAMOS UNIT #: [id number] ROOM: 516 DOCTOR: CLAIRE HINDS MD BIRTHDATE: [birth year] DOS: 10/12/2017 DISCHARGE DIAGNOSES: 1. Longstanding type 2 diabetes mellitus. 2. The patient is status post transmetatarsal amputation of the right foot from abscess and osteomyelitis involving the third metatarsal bone. 3. Severe protein-calorie malnutrition. 4. Nicotine smoke dependence. 5. Obesity. HOSPITAL COURSE: The patient presented to the Emergency Department at [facility] with four day complaints of increasing redness, swelling, and some shooting pains in his right foot. There was some discharge from the foot and the foot was found to be severely infected with soft tissue infection, deep seated abscesses, and osteomyelitis involving the third metatarsal bone. The patient was seen by Dr. Juarez and taken to surgery where a transmetatarsal amputation was performed and a wound vacuum was placed. The patient was also kept on IV vancomycin, which is to be continued at home for 6 weeks. At the time of discharge, the patient to follow up with Dr. Juarez, Infectious Disease specialist and his PCP, Dr. Jimmie Connolly within a week of discharge. 1. Longstanding type 2 diabetes mellitus. Continue on treatment with insulin during the hospital stay. Blood sugars are monitored and treated. 2. Severe protein-calorie malnutrition. The patient worked with Dietary. 3. Nicotine smoke dependence. The patient encouraged to stop smoking cigarettes. 4. Obesity, followed by Dietary. DISCHARGE MANAGEMENT: IV vancomycin for 6 more weeks as written by Infectious Disease specialist, lisinopril 10 mg a day. The patient to be continued on 40 units of Lantus insulin subQ daily. [place], [place] DISCHARGE SUMMARY NAME: NELL RAMOS UNIT #: [id number] ROOM: 516 DOCTOR: CLAIRE HINDS MD BIRTHDATE: [birth year] CLAIRE HINDS MD CM:DISCHARG [id number] CLAIRE HINDS MD 10/30/17 0746 interface
--- NOTE | ~2017-10-03 | PR ---
[place], [place] PROGRESS NOTE [id number] UN[facility] #: [id number] ROOM: 516 DOCTOR: CLAIRE HINDS MD BIRTHDATE: [birth year] DOS: 10/10/2017 SUBJECTIVE: The patient continues to get better. He has a wound VAC placed on his right foot, where he had transmetatarsal amputation for osteomyelitis of the third metatarsal bone and extensive soft tissue infection. The patient remains on antibiotics and will also need 2 more weeks of oral antibiotics after he goes home. The patient is presently on IV vancomycin and cefazolin, and is being followed by Infectious Disease specialist and material handling supervisor. IMPRESSION AND PLAN: 1. Chronic primary insomnia, treated and controlled with trazodone as needed. 2. Type 2 diabetes mellitus with blood sugars ranging between 150 to 200 mostly; the patient remains on Lantus insulin. 3. The patient is on Percocet as needed for pain control. 4. Benign essential hypertension, for which I will start treating the patient with lisinopril and follow blood pressures. CLAIRE HINDS MD CM:PNTRANS [phone] CLAIRE HINDS MD 10/11/17 0158 interface
--- NOTE | ~2017-10-03 | PR ---
[place], [place] PROGRESS NOTE [id number] UN[facility] #: [id number] ROOM: 516 DOCTOR: MARGY PARRISH MD BIRTHDATE: [birth year] DOS: SUBJECTIVE: The patient is about the same, does not have any new complaints. OBJECTIVE: GENERAL: He is awake and alert and oriented. VITAL SIGNS: Afebrile, blood pressure is 132/86, pulse of 70. LUNGS: Diminished breath sounds, clear. HEART: Regular. ABDOMEN: Obese, soft. EXTREMITIES: Without any edema. ASSESSMENT AND PLAN: Osteomyelitis of the third proximal metatarsal, status post mid tarsal amputation. The patient is stable. Wound cultures are negative. Hopefully, we can discontinue antibiotics and discharge him to home on p.o. medicines. The patient does not want to go to a rehab facility. His blood cultures are negative. We just need to ask Social Service to try to get him a wound VAC for home. Visiting nurses will be consulted. Routine labs to be ordered for tomorrow. MARGY PARRISH MD CM:PNTRANS 8 [phone] MARGY PARRISH MD 10/09/171916 interface
--- NOTE | ~2017-10-03 | WRIGHTHP ---
[place], [place] PATIENT HISTORY AND PHYSICAL EXAM NAME: NELL RAMOS [facility] #: [id number] UNIT #: [id number] ROOM: 516 DOCTOR: CLAIRE HINDS MD BIRTHDATE: [birth year] DOS: 10/03/2017 HISTORY OF PRESENT ILLNESS: The patient is a 57-year-old gentleman with a past medical history of: 1. Cellulitis and osteomyelitis involving right foot in February of 2017. 2. Longstanding type 2 diabetes mellitus. 3. Vitamin D deficiency. 4. Severe protein-calorie malnutrition. 5. Nicotine smoke dependence. 6. Obesity. 7. Amputation of the right toe for injury. The patient presented to the emergency department at [facility] with 4 day complaints of redness and swelling with some shooting pains starting in his right foot on Monday. Finally, he could see some discharge. The patient was evaluated in the emergency department and he was found to have extensive soft tissue infection, abscess formation involving dorsal and plantar forefoot, evidence of superficial plantar surface ulceration, possible fistulous tract underlying proximal third metatarsal bone with possible chronic osteomyelitis signs and evidence of acute osteomyelitis and septic arthritis of the third metatarsophalangeal joint and the third proximal phalanx. The patient also found to be slightly hyperglycemic and recommended for admission and further management. After admission, the patient is to be seen by infectious disease specialist and the foot surgeon. Case was discussed with Dr. Long Goode this morning and his partner is going to evaluate the patient today at 11:00 a.m. for further management. The patient already on intravenous Zosyn and vancomycin. No complaints of chest pain, shortness of breath, no other GI or urinary symptoms. REVIEW OF SYSTEMS: LUNGS: No increasing shortness of breath or wheezing. GASTROINTESTINAL: No nausea, vomiting, diarrhea, constipation. CARDIOVASCULAR: No chest pains or palpitations. FAMILY HISTORY: Noncontributory. SOCIAL HISTORY: The patient does smoke cigarettes. Denies any alcohol or drug abuse. FAMILY HISTORY: Noncontributory. HOME MEDICATIONS: Metformin, Lantus insulin. ALLERGIES: No known drug allergies. PHYSICAL EXAMINATION: GENERAL: Alert, oriented times 3, in no visible distress. HEENT AND NECK: Extraocular movements are intact. Sclerae are anicteric. Oral [place], [place] PATIENT HISTORY AND PHYSICAL EXAM [id number] UNIT #: [id number] ROOM: 516 DOCTOR: CLAIRE HINDS MD BIRTHDATE: [birth year] mucosa is moist and clean. No obvious facial weakness. Neck is supple without any lymphadenopathy. No thyromegaly. No JVD. No carotid arterial bruits. LUNGS: Clear to auscultation. No wheezing. No rhonchi. CARDIOVASCULAR SYSTEM: Heart rate is regular in rate and rhythm. S1 and S2 normally audible. No significant murmur or any other abnormal cardiac sounds. ABDOMEN: Soft, nontender. No obvious organomegaly. Bowel sounds are present. No obvious herniation. EXTREMITIES: Swelling of the distal foot, redness and discharge and drainage. CENTRAL NERVOUS SYSTEM: Alert and oriented were 3. Cranial nerves II-XII are intact. Speech is normal. The patient is able to move all extremities. Normal muscle strength. Deep tendon reflexes are equal on both sides. Plantars were downgoing. LABORATORY DATA: White cell count of 12,000, improved from 13,000 yesterday; hemoglobin of 13.3 down to 11.5 today. Normal platelets, normal serum electrolytes. CT scan results as mentioned above. Sed rate elevated at 65. C-reactive protein elevated to 15. IMPRESSION AND PLAN: 1. The patient with acute cellulitis, osteomyelitis and septic arthritis involving the right foot to be immediately evaluated by the foot surgeons and infectious disease specialist. The patient already on IV Zosyn and vancomycin. I had a detailed discussion with the patient regarding the severe infection in his foot and he decided to stay at [facility] for further treatment rather than being sent out to a tertiary care center. The patient has been treated by the foot doctors before. 2. Type 2 diabetes mellitus, insulin requiring. Blood sugars will be monitored and treated. I will stop his metformin because the patient apparently will end up going for surgery. CLAIRE HINDS MD CM:HISPHYS:PATIENT HISTORY AND PHYSICAL EXAMINATION [id number] CLAIRE HINDS MD 10/04/17 2200 interface
--- NOTE | ~2017-10-03 | PR ---
[place], [place] PROGRESS NOTE [id number] UNIT #: [id number] ROOM: 516 DOCTOR: MARGY PARRISH MD BIRTHDATE: [birth year] DOS: SUBJECTIVE: The patient is resting comfortably. He does not have any complaints. OBJECTIVE: VITAL SIGNS: Blood pressure is 139/66, pulse of 69, respirations 16, temperature 98.2. LUNGS: Clear. HEART: Regular. ABDOMEN: Obese. EXTREMITIES: Without any edema. Right leg mid tarsal amputation with a wound VAC in place. The wound site looks pretty clean. LABORATORY DATA: Wound culture grew no bacteria, other than a skin contaminate on one of the specimens. ASSESSMENT AND PLAN: 1. The patient with osteomyelitis, status post metatarsal amputation of the right foot, on IV vancomycin and a wound VAC, awaiting transfer to ____. Insurance has not pre-certified, so he will have to wait until Monday to be discharged. 1. Type 2 diabetes mellitus, fairly controlled. MARGY PARRISH MD CM:PNTRANS [id number] MARGY PARRISH MD 10/07/17 1521 interface
--- NOTE | ~2017-10-03 | PR ---
[place], [place] PROGRESS NOTE [id number] UNIT #: [id number] ROOM: 516 DOCTOR: JENNIFER PARK DPM BIRTHDATE: [birth year] DOS: 10/06/2017 SUBJECTIVE: This patient is seen postop day 2, status post transmetatarsal amputation, incision and drainage of infection, right foot. He states he has very minimal pain. He is feeling well. he states he feels better now than he did prior to the surgery. Denies fever or chills. Denies nausea or vomiting. He states he is eating well. OBJECTIVE: EXTREMITIES: The wound VAC is in place. Neurovascular status is unchanged to the foot. There is no edema or erythema surrounding the surgical area. There is some mild drainage in the canister of the wound VAC, but overall no further signs of infection or abscess noted Clinically. LABORATORY DATA: The patient's WBCs are down to 9.2. ASSESSMENT: Postop day 2, status post transmetatarsal amputation, right foot. PLAN: Continue with wound VAC at 125 mmHg continuous, change every 3 days. Antibiotics per Infectious Disease. The patient is okay to [facility] to a jail for antibiotics and therapy. We will follow next week to follow up on the wound. Right now, he is stable and he is progressing well at this time. JENNIFER PARK DPM CM:PNJOSE LUIS 11 [phone] JENNIFER PARK DPM 10/06/172133 interface
--- NOTE | ~2017-10-03 | O ---
[place], [place] OPERATIVE NOTE NAME: NELL RAMOS UNIT #: [id number] ROOM: 516 DOCTOR: LARRY GOLDMAN DPM BIRTHDATE: [birth year] DOS: 10/04/2017 HISTORY AND PHYSICAL: VASCULAR: DP and PT pulses palpable +1/4 to bilateral feet. Capillary refill time is noted to be brisk to the digits of bilateral feet. DERMATOLOGICAL: Ulceration and abscess noted to the right dorsal foot at the level of the second and third metatarsophalangeal joint with purulent drainage and malodor noted. NEUROLOGICAL: Protective sensation is noted to be absent to the level of the heel as tested with 5.07 Irene-Byron monofilament wire to bilateral lower extremities. ORTHOPEDIC: No pain with calf compression noted to bilateral lower extremities. Negative Homans sign noted to bilateral lower extremities. All lower extremity muscle groups right +4/5 in strength to bilateral lower extremities. INDICATIONS FOR SURGERY: This 57-year-old male patient presents to [facility] after approximate 1 week history of ulceration to his digits. The patient stated that he had wound to his toe. Over the past several weeks and that the infection has gotten worse. The patient states that the infection had developed into pus about the past week or so. The patient knows that he has missed multiple appointments at his podiatry office and says that it was secondary to not having insurance. I discussed the surgical procedure in detail with the patient. I explained all risks and benefits of the procedure. The patient understands this. The patient was consented and agreed to the procedure. All questions were answered. No guarantees were given. The operative site was confirmed and marked in the preoperative holding area. CT scan results were reviewed and demonstrated erosive changes at the second and third digits and at the metatarsals. Underlying abscess was noted. Preoperative vascular testing demonstrated adequate blood flow needed for healing. SURGEON: Larry Goldman DPM. ELECTROCARDIOGRAPH OPERATOR: None. PREOPERATIVE DIAGNOSIS: Osteomyelitis and deep complicated abscess of right foot. POSTOPERATIVE DIAGNOSIS: Osteomyelitis and deep complicated abscess of right foot. PROCEDURE: 1. Transmetatarsal amputation of right foot with bone debridement and biopsy. 2. Incision and drainage of deep complicated abscess, right foot. HEMOSTASIS: None. ESTIMATED BLOOD LOSS: 50 mL. MATERIALS: None. [place], [place] OPERATIVE NOTE [id number] #: [id number] ROOM: 516 DOCTOR: LARRY GOLDMAN DPM BIRTHDATE: [birth year] INJECTABLES: None. DESCRIPTION OF PROCEDURE: This 57-year-old male patient was seen in the preoperative holding area where the consent was reviewed and signed. All questions were answered. No guarantees were given. The operative site was agreed on and marked. The patient was then taken from the preoperative holding area to the operating room and placed on the operating room in the supine position. After being placed in the supine position, the patient was administered general anesthesia by the anesthesiologist. At this time, the right lower extremity was prepped and draped in normal sterile fashion. A pneumatic thigh tourniquet was placed, but was not used to the right lower extremity. At this time, the right lower extremity was draped in the normal sterile fashion. At this time, attention was directed to the right forefoot at the level of the metatarsals where there was noted to be an ulceration that probed from plantar to dorsal and probed to bone. There was noted to be copious amounts of purulent drainage. At this time, using a 15 blade, an incision was made dorsally across the abscess at the dorsal aspect of the second and third metatarsals and there was noted to be purulence and drainage across metatarsals 2, 3 and 4. Dissection was continued through the subcutaneous tissue with care to clamp and cauterize all bleeders as deemed necessary. At this time, dissection was carried out to the level of bone using blunt and sharp dissection. There was noted to be soft appearance to the digits proximal phalanges 2, 3 and 4. There was also noted to be soft and abnormal appearance of the bone of metatarsal heads 2, 3 and 4. At this time, dissection was continued to the metatarsal shafts of metatarsals 2, 3, 4 and 5. There was noted to be a sinus tract extending plantarly across the metatarsals to the lateral aspect of the fourth metatarsal and just medial to the fifth metatarsal. At this time, the digits 2, 3, 4, and 5 were disarticulated using a 15 blade and passed to the back table to be sent for pathological analysis. Following this, a lugo periosteal elevator was used along the metatarsal shafts as 2, 3, 4 and 5. Following this, a sagittal saw was utilized to resect the metatarsals at the anatomical neck of 2, 3, 4 and 5. These were then freed from the soft tissue and passed to the back table to be sent for pathological analysis. At this time, wound cultures were taken, aerobic and anaerobic of the foot. After resection and debridement, there was noted to be healthy clean bleeding tissue noted dorsally and plantarly. There was also noted to be solid appearance to the bone of the metatarsals 2, 3, 4 and 5. On inspection, the bone was hard to palpation and had a normal glossy appearance. At this time, the incision site was irrigated with copious amounts of sterile saline. Next, the incision site was irrigated with 3 liters of normal sterile saline and pulse lavage. After lavage, the amputation sites were inspected and the incision site was deemed adequate for closure. When the incision site was inspected, intraoperative fluoroscopy was also utilized at this time and there was noted to be an even parabola across the amputation of the metatarsals. Subcutaneous tissue was reapproximated using 2-0 Prolene in a simple interrupted suturing fashion. Skin was reapproximated using 2-0 Prolene and nylon in a simple interrupted suturing fashion. The central portion of the amputation site was left open and packed using quarter inch [place], [place] OPERATIVE NOTE NAME: NELL RAMOS UNIT #: [id number] ROOM: [facility] DOCTOR: LARRY GOLDMAN DPM BIRTHDATE: [birth year] iodoform packing gauze. At this time, the incision site was dressed using Betadine soaked 4 x 4s, dry 4 x 4 gauze, Kerlix and an Elier bandage in a mildly compressive dressing. Vascular status was maintained throughout the case and was noted to be intact at the end of the case. At this time, the patient was awoken from anesthesia by the anesthesiologist and tolerated the procedure and anesthesia well. All vital signs were noted to be within normal limits and vascular status was noted to be intact. The patient was then transported from the operating room to the postoperative area with vital signs stable and vascular status intact. In the postoperative area, the patient received oral and written postoperative instructions. The patient will be readmitted to the floor under the care of the PCP. The patient will be followed as an inpatient in the hospital. LARRY GOLDMAN DPM CM:SMITAORD:OPERATIVE NOTE [id number] LARRY GOLDMAN DPM 10/04/17 2131 interface
--- NOTE | ~2017-10-03 | PR ---
[place], [place] PROGRESS NOTE NAME: NELL RAMOS UNIT #: [id number] ROOM: 516 DOCTOR: REMY ROYAL,LALITHA Short BIRTHDATE: [birth year] DOS: 10/07/2017 ADDENDUM After reviewing the chart, labs, and radiographs, I agree with the above plans as described. We will follow the patient up clinically and adjust accordingly. LALITHA ALBERTO MD CM:PNTRANS [id number] LALITHA ALBERTO MD 10/10/17 0733 interface
--- NOTE | ~2017-10-03 | PR ---
[place], [place] PROGRESS NOTE NAME: NELL RAMOS UNIT #: [id number] ROOM: 516 DOCTOR: MARGY PARRISH MD BIRTHDATE: [birth year] DOS: 10/08/2017 SUBJECTIVE: The patient is resting comfortably, does not voice any complaints. OBJECTIVE: VITAL SIGNS: Graphic trend shows a pressure of 133/79, pulse of 74, respirations 18, temperature 98. LUNGS: Clear. HEART: Regular. ABDOMEN: Obese. EXTREMITIES: Without any edema. ASSESSMENT AND PLAN: 1. The patient with osteomyelitis of the third proximal metatarsal, status post mid tarsal amputation, stable. Postoperatively, wound cultures have come back negative. Should be able to discontinue some of the antibiotics and make it p.o. 2. Type 2 diabetes. Blood sugars well controlled. MARGY PARRISH MD CM:PNTRANS [id number] MARGY PARRISH MD 10/09/17 0245 interface
--- NOTE | ~2017-10-03 | PR ---
[place], [place] PROGRESS NOTE NAME: NELL RAMOS UNIT #: [id number] ROOM: 516 DOCTOR: SHARRI GUARDADO BIRTHDATE: [birth year] DOS: SUBJECTIVE: The patient is a 57-year-old male who is being followed for right foot infection with probable osteomyelitis and septic arthritis of the third toe, status post amputation of second, third, fourth and fifth toes on October 04. Has a VAC in place. States his pain is an average of 7 on a scale of 1-10. He is alert and oriented. Denies any fevers, chills, nausea, vomiting or diarrhea. No rash or itch. No cough or shortness of breath. LABORATORY DATA: Gram stain on his cultures have Gram-positive cocci in pairs. Wound cultures had skin spencer. Vancomycin trough 18.2. No other labs today. PHYSICAL EXAMINATION: VITAL SIGNS: Temperature 98.3, pulse 80, respirations 20, BP 157/73. GENERAL: A 57-year-old male, alert and oriented, in no acute distress. HEAD, EYES, EARS, NOSE AND THROAT: Normocephalic, no thrush. LUNGS: Clear to auscultation bilaterally. Respirations even and unlabored. HEART: Regular rhythm. No murmur appreciated. ABDOMEN: Soft, nondistended. EXTREMITIES: No edema. Right foot with a VAC in place. No surrounding cellulitis. SKIN: Otherwise, warm, dry, free of rashes. Multiple tattoos. ASSESSMENT: Right foot infection and osteomyelitis, status post amputation of multiple digits. PLAN: Follow up on the operative and wound cultures as well as pathology. Continue vancomycin and Zosyn pending culture results. Case discussed with Dr. Lalitha Alberto. AUGUST GEO HARRELL [place], [place] PROGRESS NOTE NAME: NELL RAMOS UNIT #: [id number] ROOM: 6 DOCTOR: SHARRI GUARDADOAUGUST BIRTHDATE: [birth year] LALITHA ALBERTO MD CM:PNJOSE LUIS [id number] HANNAH HARRELL [facility] 10/07/17 1428 interface
--- NOTE | ~2017-10-03 | PR ---
[place], [place] PROGRESS NOTE NAME: NELL RAMOS UNIT #: [id number] ROOM: 516 DOCTOR: CLAIRE HINDS MD BIRTHDATE: [birth year] DOS: 10/06/2017 SUBJECTIVE: The patient says his right foot pains are much better controlled with Percocet. OBJECTIVE: VITAL SIGNS: Blood pressure 136/69, heart rate 66 beats per minute, breathing 20 times per minute, temp 98.3 degrees Fahrenheit. GENERAL APPEARANCE: The patient is alert and oriented x 3, in no visible distress. HEENT AND NECK: Exam within normal limits. CARDIOVASCULAR SYSTEM: Heart rate is regular in rate and rhythm. S1 and S2 normally audible. LUNGS: Clear to auscultation. ABDOMEN: Soft, nontender. No obvious organomegaly. Bowel sounds are present. EXTREMITIES: Without significant cyanosis or edema. The patient is status post right metatarsal amputation of the right foot with wound VAC in place. IMPRESSION AND PLAN: 1. Transmetatarsal amputation of the right foot with wound VAC in place. The patient is being followed by Podiatry and Infectious Disease specialist, and treated with cefazolin and vancomycin. 2. Type 2 diabetes mellitus. Blood sugars are reasonably controlled. 3. Significant pain at the amputation site, being treated with Percocet and the patient is feeling comfortable with this. CLAIRE HINDS MD CM:PNTRANS 06 7 CLAIRE HINDS MD 10/07/17 0156 interface
--- NOTE | ~2017-10-03 | PR ---
[place], [place] [facility]GRESS NOTE [id number] #: [id number] ROOM: 516 DOCTOR: CLAIRE HINDS MD BIRTHDATE: [birth year] DOS: 10/11/2017 SUBJECTIVE: The patient continues to feel better. His wound VAC has been removed by Dr. Goldman today. The patient is status post transmetatarsal resection of the right foot and osteomyelitis of the third metatarsal bone. OBJECTIVE: VITAL SIGNS: Blood pressure 139/72, heart rate 81 beats per minute, breathing 20 times per minute, temperature 98 degrees Fahrenheit. GENERAL APPEARANCE: The patient is alert and oriented x 3, in no visible distress. HEENT AND NECK: Exam within normal limits. CARDIOVASCULAR SYSTEM: Heart rate is regular in rate and rhythm. S1 and S2 normally audible. LUNGS: Clear to auscultation. ABDOMEN: Soft, nontender. No obvious organomegaly. Bowel sounds are present. EXTREMITIES: Dressing at the right foot surgical site. IMPRESSION: 1. The patient with osteomyelitis of the third metatarsal bone of the right foot, status post transmetatarsal amputation, still requires IV vancomycin as recommended by Infectious Disease specialist today for 6 more weeks, which needs to be arranged by licensed social worker, so I will hold back the discharge to home. 2. Type 2 diabetes mellitus. Blood sugars are being monitored and controlled. The patient on Lantus insulin. 3. Right foot pain is reasonably controlled while the patient is taking 1 or 2 Percocets a day. 4. Benign essential hypertension, treated and controlled. The patient on lisinopril. CLAIRE HINDS MD CM:PNTRANS [id number] CLAIRE HINDS MD 10/12/17 0044 interface
[2017-10-03 16:49] VITALS: BP 138/78
[2017-10-03 17:36] LABS: HEMATOCRIT 37.7 % (42.0-52.0); HEMOGLOBIN 13.2 g/dl (14.0-18.0); MEAN CELL VOLUME 86.7 fl (80.0-94.0); MEAN CORPUSCULAR HGB 30.3 pg (27.0-31.0); MEAN PLATELET VOLUME 9.5 fl (9.6-12.3); PLATELET COUNT AUTOMATED 276 10*3/uL (130-400); RED BLOOD COUNT 4.35 10*6/uL (4.50-5.90); RED CELL DISTRI WIDTH 11.9 % (0-14.5); WHITE BLOOD COUNT 13.6 10*3/uL (4.8-10.8)
[2017-10-03 17:55] LABS: ALBUMIN 3.2 gm/dl (3.1-4.5); ALKALINE PHOSPHATASE 104 U/L (45-117); BUN 15 mg/dl (7-24); CHLORIDE 98 mmol/L (98-107); CREATININE 0.83 mg/dL (0.70-1.30); POTASSIUM 3.7 mmol/L (3.5-5.1); SGOT/AST 11 IU/L (3-35); SGPT/ALT 18 U/L (12-78); SODIUM 136 mmol/L (136-145); TOTAL PROTEIN 7.1 gm/dL (6.4-8.2)
[2017-10-03 18:03] LABS: TOTAL CELLS COUNTED 100 #CELLS
[2017-10-03 18:04] LABS: PLATELET SUFFICIENCY NORMAL (NORMAL)
[2017-10-03 18:51] VITALS: BP 133/68
[2017-10-03 19:30] VITALS: BP 128/70
[2017-10-03 20:00] VITALS: BP 150/77
[2017-10-03] MEDS ORDERED: TRULICITY0.75 MG/0. SC (20:41)
[2017-10-04] VITALS (11 sets, daily range): BP systolic 130–153; BP diastolic 63–79
[2017-10-04 06:48] LABS: HEMATOCRIT 34.7 % (42.0-52.0); HEMOGLOBIN 11.5 g/dl (14.0-18.0); MEAN CELL VOLUME 88.1 fl (80.0-94.0); MEAN CORPUSCULAR HGB 29.2 pg (27.0-31.0); MEAN CORPUSCULAR HGB CONC 33.1 g/dl (33.0-37.0); MEAN PLATELET VOLUME 9.3 fl (9.6-12.3); PLATELET COUNT AUTOMATED 270 10*3/uL (130-400); RED BLOOD COUNT 3.94 10*6/uL (4.50-5.90); RED CELL DISTRI WIDTH 11.9 % (0-14.5); WHITE BLOOD COUNT 12.2 10*3/uL (4.8-10.8)
[2017-10-04 06:55] LABS: BUN 11 mg/dl (7-24); CHLORIDE 102 mmol/L (98-107); CREATININE 0.68 mg/dL (0.70-1.30); POTASSIUM 3.5 mmol/L (3.5-5.1); SODIUM 139 mmol/L (136-145)
[2017-10-04 07:21] LABS: TOTAL CELLS COUNTED 100 #CELLS
[2017-10-04 07:22] LABS: PLATELET SUFFICIENCY NORMAL (NORMAL)
[2017-10-05] VITALS: BP 127/63
[2017-10-05 07:12] LABS: HEMATOCRIT 33.3 % (42.0-52.0); HEMOGLOBIN 11.1 g/dl (14.0-18.0); MEAN CELL VOLUME 88.3 fl (80.0-94.0); MEAN CORPUSCULAR HGB 29.4 pg (27.0-31.0); MEAN CORPUSCULAR HGB CONC 33.3 g/dl (33.0-37.0); MEAN PLATELET VOLUME 9.3 fl (9.6-12.3); PLATELET COUNT AUTOMATED 272 10*3/uL (130-400); RED BLOOD COUNT 3.77 10*6/uL (4.50-5.90); RED CELL DISTRI WIDTH 11.8 % (0-14.5); WHITE BLOOD COUNT 10.5 10*3/uL (4.8-10.8)
[2017-10-05 07:22] LABS: BUN 13 mg/dl (7-24); CHLORIDE 103 mmol/L (98-107); CREATININE 0.63 mg/dL (0.70-1.30); POTASSIUM 3.9 mmol/L (3.5-5.1); SODIUM 139 mmol/L (136-145)
[2017-10-05 07:40] LABS: TOTAL CELLS COUNTED 100 #CELLS
[2017-10-05 07:41] LABS: PLATELET SUFFICIENCY NORMAL (NORMAL)
[2017-10-05 08:00] VITALS: BP 121/68
[2017-10-05 12:00] VITALS: BP 151/71
[2017-10-05 16:00] VITALS: BP 132/68
[2017-10-05 20:00] VITALS: BP 151/72
[2017-10-06] VITALS: BP 140/67
[2017-10-06 06:41] LABS: BASO % 0.4 % (0.0-1.0); EOS # 0.2 10*3/uL (0.0-0.4); EOS % 2.6 % (1.0-4.0); HEMATOCRIT 31.9 % (42.0-52.0); HEMOGLOBIN 10.6 g/dl (14.0-18.0); LYMPH # 2.4 10*3/uL (1.3-4.4); LYMPH % 25.7 % (27.0-41.0); MEAN CELL VOLUME 88.4 fl (80.0-94.0); MEAN CORPUSCULAR HGB 29.4 pg (27.0-31.0); MEAN CORPUSCULAR HGB CONC 33.2 g/dl (33.0-37.0); MEAN PLATELET VOLUME 9.2 fl (9.6-12.3); MONO # 1.4 10*3/uL (0.1-1.0); MONO % 14.8 % (3.0-9.0); NEUT # 5.2 10*3/uL (2.3-7.9); NEUT % 56.1 % (47.0-73.0); PLATELET COUNT AUTOMATED 273 10*3/uL (130-400); RED BLOOD COUNT 3.61 10*6/uL (4.50-5.90); RED CELL DISTRI WIDTH 11.8 % (0-14.5); WHITE BLOOD COUNT 9.2 10*3/uL (4.8-10.8)
[2017-10-06 07:27] LABS: BUN 10 mg/dl (7-24); CHLORIDE 106 mmol/L (98-107); CREATININE 0.67 mg/dL (0.70-1.30); POTASSIUM 4.3 mmol/L (3.5-5.1); SODIUM 140 mmol/L (136-145)
[2017-10-06 08:00] VITALS: BP 141/75
[2017-10-06 12:00] VITALS: BP 150/77
[2017-10-06 16:00] VITALS: BP 136/69
[2017-10-06 20:00] VITALS: BP 145/66
[2017-10-07] VITALS: BP 139/66
[2017-10-07 08:00] VITALS: BP 158/73
[2017-10-07 12:00] VITALS: BP 157/73
[2017-10-07 16:00] VITALS: BP 173/80
[2017-10-07 18:58] VITALS: BP 143/72
[2017-10-07 20:00] VITALS: BP 156/72
[2017-10-08] VITALS: BP 133/79
[2017-10-08 08:00] VITALS: BP 151/88
[2017-10-08 12:00] VITALS: BP 171/73
[2017-10-08 16:02] VITALS: BP 157/116
[2017-10-08 20:00] VITALS: BP 190/80
[2017-10-09] VITALS: BP 151/69
[2017-10-09 07:01] LABS: BUN 14 mg/dl (7-24)
[2017-10-09 08:00] VITALS: BP 149/73
[2017-10-09 12:00] VITALS: BP 156/70
[2017-10-09 16:00] VITALS: BP 147/64
[2017-10-09 20:00] VITALS: BP 150/76
[2017-10-10] VITALS: BP 159/83
[2017-10-10 06:39] LABS: BASO # 0.1 10*3/uL (0.0-0.1); BASO % 0.5 % (0.0-1.0); EOS # 0.2 10*3/uL (0.0-0.4); EOS % 2.1 % (1.0-4.0); HEMATOCRIT 34.9 % (42.0-52.0); HEMOGLOBIN 11.7 g/dl (14.0-18.0); LYMPH # 2.5 10*3/uL (1.3-4.4); LYMPH % 22.3 % (27.0-41.0); MEAN CELL VOLUME 88.1 fl (80.0-94.0); MEAN CORPUSCULAR HGB 29.5 pg (27.0-31.0); MEAN CORPUSCULAR HGB CONC 33.5 g/dl (33.0-37.0); MEAN PLATELET VOLUME 8.9 fl (9.6-12.3); MONO # 1.2 10*3/uL (0.1-1.0); MONO % 10.8 % (3.0-9.0); NEUT # 7.1 10*3/uL (2.3-7.9); NEUT % 62.9 % (47.0-73.0); PLATELET COUNT AUTOMATED 375 10*3/uL (130-400); RED BLOOD COUNT 3.96 10*6/uL (4.50-5.90); RED CELL DISTRI WIDTH 11.9 % (0-14.5); WHITE BLOOD COUNT 11.2 10*3/uL (4.8-10.8)
[2017-10-10 06:51] LABS: BUN 11 mg/dl (7-24); CHLORIDE 103 mmol/L (98-107); CREATININE 0.76 mg/dL (0.70-1.30); POTASSIUM 4.3 mmol/L (3.5-5.1); SODIUM 140 mmol/L (136-145)
[2017-10-10 08:00] VITALS: BP 153/74
[2017-10-10 12:00] VITALS: BP 151/77
[2017-10-10 16:00] VITALS: BP 158/71
[2017-10-10 20:00] VITALS: BP 125/60
[2017-10-11] VITALS: BP 156/68
[2017-10-11 08:00] VITALS: BP 160/78
[2017-10-11 12:00] VITALS: BP 139/72
[2017-10-11 16:00] VITALS: BP 175/80
[2017-10-11 20:00] VITALS: BP 159/63
[2017-10-12] VITALS: BP 125/70
[2017-10-12 08:00] VITALS: BP 136/68
[2017-10-12] MEDS ORDERED: Lantus SC (11:40)
== END 2017-10-12 13:17 | disposition home health service (06) | DRG 853 ==
LOC: ED 16:44 → EDHOLD 18:29 → 5E 18:29
PROVIDERS: Internal Medicine; Student in an Organized Health Care Education/Training Program
PROC: 0Y6M0ZC Detachment at Right Foot, Partial 3rd Ray, Open Approach (ICD-10-PCS; principal; 2017-10-04)
PROC: 0Y6M0ZB Detachment at Right Foot, Partial 2nd Ray, Open Approach (ICD-10-PCS; 2017-10-04)
PROC: 0Y6M0ZD Detachment at Right Foot, Partial 4th Ray, Open Approach (ICD-10-PCS; 2017-10-04)
PROC: 0Y6M0ZF Detachment at Right Foot, Partial 5th Ray, Open Approach (ICD-10-PCS; 2017-10-04)
PROC: 0QBN0ZX Excision of Right Metatarsal, Open Approach, Diagnostic (ICD-10-PCS; 2017-10-04)
PROC: 05HY33Z Insertion of Infusion Device into Upper Vein, Percutaneous Approach (ICD-10-PCS; 2017-10-11)
DX: A41.9 Sepsis, unspecified organism (principal); E43 Unspecified severe protein-calorie malnutrition; M00.9 Pyogenic arthritis, unspecified; L03.115 Cellulitis of right lower limb; M86.671 Other chronic osteomyelitis, right ankle and foot; L02.611 Cutaneous abscess of right foot; M86.171 Other acute osteomyelitis, right ankle and foot; E11.65 Type 2 diabetes mellitus with hyperglycemia; E66.9 Obesity, unspecified; F17.200 Nicotine dependence, unspecified, uncomplicated; L85.9 Epidermal thickening, unspecified; S90.415A Abrasion, left lesser toe(s), initial encounter; X58.XXXA Exposure to other specified factors, initial encounter; F51.04 Psychophysiologic insomnia; I10 Essential (primary) hypertension; Z68.30 Body mass index [BMI] 30.0-30.9, adult; Z82.49 Family history of ischemic heart disease and other diseases of the circulatory system; Z80.1 Family history of malignant neoplasm of trachea, bronchus and lung; Z79.899 Other long term (current) drug therapy; Y93.89 Activity, other specified; Y92.89 Other specified places as the place of occurrence of the external cause; Y99.8 Other external cause status

== ENCOUNTER → 2017-12-22 | Outpatient (CLI) | payer OTHER ==
[~2017-12-22] MED LIST changes: +Lantus SC; +TRULICITY0.75 MG/0. SC
== END | disposition home or self-care (01) ==
LOC: RESCLI 02:11
DX: I10 Essential (primary) hypertension (principal); E11.65 Type 2 diabetes mellitus with hyperglycemia; E11.42 Type 2 diabetes mellitus with diabetic polyneuropathy; E55.9 Vitamin D deficiency, unspecified; E78.2 Mixed hyperlipidemia; R00.0 Tachycardia, unspecified; F17.210 Nicotine dependence, cigarettes, uncomplicated; Z71.6 Tobacco abuse counseling; Z89.421 Acquired absence of other right toe(s)

== ENCOUNTER → 2018-06-14 | Outpatient (CLI) | payer OTHER ==
[~2018-06-14] MED LIST changes: +DOXYCYCLINE100 M3 PO; +LEVEMIR FL100 UNIT/1 SQ
[2018-06-14 16:34] LABS: BUN 27 mg/dl (7-24); CHLORIDE 103 mmol/L (98-107); CREATININE 1.16 mg/dL (0.70-1.30); POTASSIUM 4.5 mmol/L (3.5-5.1); SODIUM 139 mmol/L (136-145)
== END | disposition home or self-care (01) ==
LOC: RESCLI 03:15
PROVIDERS: Internal Medicine; Student in an Organized Health Care Education/Training Program
DX: E11.65 Type 2 diabetes mellitus with hyperglycemia (principal); I10 Essential (primary) hypertension; E78.2 Mixed hyperlipidemia; E11.42 Type 2 diabetes mellitus with diabetic polyneuropathy; E55.9 Vitamin D deficiency, unspecified; F17.200 Nicotine dependence, unspecified, uncomplicated; Z71.6 Tobacco abuse counseling; Z89.421 Acquired absence of other right toe(s); Z79.84 Long term (current) use of oral hypoglycemic drugs; Z79.899 Other long term (current) drug therapy; Z88.8 Allergy status to other drugs, medicaments and biological substances

== ENCOUNTER 2018-08-04 11:59 | Emergency (ER) | payer OTHER ==
[~2018-08-04] VITALS: Ht 175.2 cm; Wt 97.5 kg
[~2018-08-04 11:59] MED LIST changes: -DOXYCYCLINE100 M3 PO; -LEVEMIR FL100 UNIT/1 SQ
[2018-08-04 14:13] LABS: BASO % 0.3 % (0.0-1.0); EOS # 0.1 10*3/uL (0.0-0.4); EOS % 1.2 % (1.0-4.0); HEMATOCRIT 39.4 % (42.0-52.0); HEMOGLOBIN 13.2 g/dl (14.0-18.0); LYMPH # 2.2 10*3/uL (1.3-4.4); LYMPH % 24.1 % (27.0-41.0); MEAN CELL VOLUME 90.2 fl (80.0-94.0); MEAN CORPUSCULAR HGB 30.2 pg (27.0-31.0); MEAN CORPUSCULAR HGB CONC 33.5 g/dl (33.0-37.0); MEAN PLATELET VOLUME 9.3 fl (9.6-12.3); MONO # 1.1 10*3/uL (0.1-1.0); MONO % 12.3 % (3.0-9.0); NEUT # 5.5 10*3/uL (2.3-7.9); NEUT % 61.1 % (47.0-73.0); PLATELET COUNT AUTOMATED 219 10*3/uL (130-400); RED BLOOD COUNT 4.37 10*6/uL (4.50-5.90); RED CELL DISTRI WIDTH 12.8 % (0-14.5)
[2018-08-04 14:35] LABS: ALBUMIN 3.3 gm/dl (3.1-4.5); ALKALINE PHOSPHATASE 67 U/L (45-117); BUN 15 mg/dl (7-24); CHLORIDE 104 mmol/L (98-107); CREATININE 0.86 mg/dL (0.70-1.30); POTASSIUM 3.9 mmol/L (3.5-5.1); SGOT/AST 20 IU/L (3-35); SGPT/ALT 29 U/L (12-78); SODIUM 139 mmol/L (136-145); TOTAL PROTEIN 6.9 gm/dL (6.4-8.2)
[2018-08-04] MEDS ORDERED: DOXYCYCLINE100 M3 PO (16:17)
[2018-08-07] MEDS ORDERED: LEVEMIR FL100 UNIT/1 SQ (20:05)
[2018-08-09] MEDS ORDERED: DOXYCYCLINE100 M3 PO (09:02)
== END 2018-08-04 16:31 | disposition home or self-care (01) ==
LOC: ED 11:59
PROVIDERS: Physician Assistant
DX: E11.621 Type 2 diabetes mellitus with foot ulcer (principal); E11.40 Type 2 diabetes mellitus with diabetic neuropathy, unspecified; L97.509 Non-pressure chronic ulcer of other part of unspecified foot with unspecified severity; F17.200 Nicotine dependence, unspecified, uncomplicated; Z79.82 Long term (current) use of aspirin

== ENCOUNTER → 2018-12-12 | Outpatient (CLI) | payer OTHER ==
[~2018-12-12] MED LIST changes: +DOXYCYCLINE100 M3 PO; +LEVEMIR FL100 UNIT/1 SQ
== END | disposition home or self-care (01) ==
LOC: RESCLI 01:07
DX: E55.9 Vitamin D deficiency, unspecified (principal); E11.65 Type 2 diabetes mellitus with hyperglycemia; I10 Essential (primary) hypertension; E11.42 Type 2 diabetes mellitus with diabetic polyneuropathy; E78.2 Mixed hyperlipidemia; Z89.421 Acquired absence of other right toe(s); Z72.0 Tobacco use; Z79.899 Other long term (current) drug therapy

== ENCOUNTER → 2019-05-22 | Outpatient (CLI) | payer SELFPAY ==
[~2019-05-22] MED LIST changes: +FENOFIBRATE160 MG PO; +Humalog SQ; +LISINOPRIL5 MG PO; +NEURONTIN300 MG PO; +VITAMIN D32000 UNI1 PO; +ZETIA10 MG PO
== END | disposition home or self-care (01) ==
LOC: RESCLI 00:26
DX: Z12.5 Encounter for screening for malignant neoplasm of prostate (principal); Z12.2 Encounter for screening for malignant neoplasm of respiratory organs; Z12.11 Encounter for screening for malignant neoplasm of colon; E11.65 Type 2 diabetes mellitus with hyperglycemia; E55.9 Vitamin D deficiency, unspecified; I10 Essential (primary) hypertension; E78.2 Mixed hyperlipidemia; E11.42 Type 2 diabetes mellitus with diabetic polyneuropathy; Z89.421 Acquired absence of other right toe(s); Z72.0 Tobacco use; Z79.899 Other long term (current) drug therapy

== ENCOUNTER 2019-05-27 16:23 | Inpatient (IN) | payer SELFPAY ==
[~2019-05-27] VITALS: Ht 175.3 cm; Wt 102.7 kg
[~2019-05-27 16:23] MED LIST changes: -FENOFIBRATE160 MG PO; -Humalog SQ; -LISINOPRIL5 MG PO; -NEURONTIN300 MG PO; -VITAMIN D32000 UNI1 PO; -ZETIA10 MG PO
[2019-05-27 16:37] VITALS: BP 118/95
[2019-05-27 17:50] LABS: BASO # 0.1 10*3/uL (0.0-0.1); BASO % 0.5 % (0.0-1.0); EOS # 0.1 10*3/uL (0.0-0.4); EOS % 0.7 % (1.0-4.0); HEMATOCRIT 43.8 % (42.0-52.0); HEMOGLOBIN 14.8 g/dl (14.0-18.0); LYMPH # 2.1 10*3/uL (1.3-4.4); LYMPH % 17.1 % (27.0-41.0); MEAN CELL VOLUME 88.7 fl (80.0-94.0); MEAN CORPUSCULAR HGB CONC 33.8 g/dl (33.0-37.0); MEAN PLATELET VOLUME 10.1 fl (9.6-12.3); MONO # 1.4 10*3/uL (0.1-1.0); MONO % 11.4 % (3.0-9.0); NEUT # 8.6 10*3/uL (2.3-7.9); NEUT % 69.6 % (47.0-73.0); PLATELET COUNT AUTOMATED 183 10*3/uL (130-400); RED BLOOD COUNT 4.94 10*6/uL (4.50-5.90); RED CELL DISTRI WIDTH 11.9 % (0-14.5); WHITE BLOOD COUNT 12.3 10*3/uL (4.8-10.8)
[2019-05-27 18:19] LABS: ALBUMIN 3.5 gm/dl (3.1-4.5); CREATININE 1.59 mg/dL (0.70-1.30); POTASSIUM 5.5 mmol/L (3.5-5.1); TOTAL PROTEIN 7.1 gm/dL (6.4-8.2)
--- NOTE | 2019-05-27 20:00 | NUR ---
CIRITICAL LA 3.5
[2019-05-27 21:40] VITALS: BP 150/81
--- NOTE | 2019-05-27 21:40 | NUR ---
PT REFUSED FLU SHOT.
--- NOTE | 2019-05-27 21:40 | NUR ---
A 59, admitted to , under the services of TYRONE Leyva DO with a diagnosis of RUBEN, DIABETIC FOOT ULCERS, SEPSIS. Chief complaint is DIABETIC FOOT ULCERS. Patient arrived via wheel chair from ER. Monitor applied. Initial assessment completed. Vital signs taken and recorded. TYRONE LEYVA DO notified of admission to the unit. Orders received. See assessment for past medical history, medications and allergies. Patient and/or family oriented to unit. [address] visitation policy reviewed. Clothing/patient valuable form completed. SONDRA NORTON
[2019-05-27] MEDS ORDERED: ZETIA10 MG PO (22:30)
[2019-05-27] MEDS ORDERED: NEURONTIN300 MG PO (22:53)
--- NOTE | 2019-05-27 22:59 | NUR ---
NOTIFIED PTS MED RED UP TO DATE.
[2019-05-28] VITALS: BP 125/64
--- NOTE | 2019-05-28 00:42 | NUR ---
PT REQUESTING SOMETHING TO SLEEP. MEDICATED WITH PRN RESOTRIL. WILL CHECK EFFECTIVENESS. CALL LIGHT WITHIN REACH.
--- NOTE | 2019-05-28 02:00 | NUR ---
PT SLEEPING. RESPIRATIONS EASY AND REGULAR, NONLABORED. CALL LIGHT WITHIN REACH. WILL MONITOR.
--- NOTE | 2019-05-28 04:04 | NUR ---
24 HR chart check completed.
[2019-05-28 06:46] LABS: BASO % 0.4 % (0.0-1.0); EOS # 0.1 10*3/uL (0.0-0.4); EOS % 1.3 % (1.0-4.0); HEMATOCRIT 38.7 % (42.0-52.0); HEMOGLOBIN 12.7 g/dl (14.0-18.0); LYMPH # 2.6 10*3/uL (1.3-4.4); LYMPH % 33.6 % (27.0-41.0); MEAN CELL VOLUME 89.4 fl (80.0-94.0); MEAN CORPUSCULAR HGB 29.3 pg (27.0-31.0); MEAN CORPUSCULAR HGB CONC 32.8 g/dl (33.0-37.0); MEAN PLATELET VOLUME 10.2 fl (9.6-12.3); MONO # 1.2 10*3/uL (0.1-1.0); MONO % 16.1 % (3.0-9.0); NEUT # 3.7 10*3/uL (2.3-7.9); PLATELET COUNT AUTOMATED 171 10*3/uL (130-400); RED BLOOD COUNT 4.33 10*6/uL (4.50-5.90); RED CELL DISTRI WIDTH 11.9 % (0-14.5); WHITE BLOOD COUNT 7.7 10*3/uL (4.8-10.8)
--- NOTE | 2019-05-28 07:03 | NUR ---
NELL RAMOS [id number] Please refer to the physician's history and physical for past medical history, comorbid conditions, and allergies. Diagnosis: RUBEN DIABETIC FOOT ULCERS SEPSIS Chan Score: 19,LOW OR NO RISK WOUND DESCRIPTIONS: Wound Number: 1 Location of the wound: left heel Type of wound: stage 3 Thickness: Full Size: 3.7cm x 3.3cm x 0.1cm Tunneling: none Undermining: none Sinus Tract: none Presence of Exudate: Serosanguineous Amount: Light Color: Yellow, red, brown Odor: None Periwound Skin Appearance: Erythema Wound edges: approximated Pain (associated with wound): none at time of assessment How does patient state this happened? pt states this started 3 days ago as a blister from his shoes and he took the top of the blister off Wound Number: 2 Location of the wound: left medial aspect of foot Type of wound: stage 3 Thickness: Full Size: 4.0cm x 5.0cm x 0.1cm Tunneling: none Undermining: none Sinus Tract: none Presence of Exudate: Serosanguineous Amount: Light Color: Brown, yellow, red Odor: None Periwound Skin Appearance: Erythema Wound edges: approximated Pain (associated with wound): none at time of assessment How does patient state this happened? pt states this started 3 days ago as a blister from his shoes and he took the top of the blister off Surface the patient is resting on: Proform SKIN PREVENTION RECOMMENDATION: 1. Pressure redistribution support surface as appropriate 2. Elevate heels 3. Remove boots/TEDS every shift and reapply 4. Head of bed 30 degrees as tolerated 5. Assess nutrition and hydration 6. Manage moisture 7. Avoid the use of containment devices while in bed 8. Use absorptive products on surfaces limit layers of linens on bed 9. Turn and reposition every 1-2 hours in bed and every 1 hour in chair as tolerated 10. Weight shifts every 15 minutes while up in chair 11. Offloading with pillows or device to keep heels elevated off bed 12. Monitor skin at least every shift 13. Inspect under medical devices twice a day WOUND TREATMENT RECOMMENDATIONS: Heel raiser pro boots to bilateral feet while in bed. Venous and arterial studies to bilateral lower extremities due to non-healing wound. Cleanse left heel left medial aspect of foot with nss and apply sureprep around the wound therahoney to wound bed and cover with dsd daily and prn for soiling. Patient states he will care for these areas when he is discharged.
[2019-05-28 07:18] LABS: ALBUMIN 2.9 gm/dl (3.1-4.5); ALKALINE PHOSPHATASE 72 U/L (45-117); CHLORIDE 107 mmol/L (98-107); CHOLESTEROL 138 mg/dL (<200); CREATININE 0.92 mg/dL (0.70-1.30); FREE T4 1.13 ng/dl (0.76-1.46); HDL CHOLESTEROL 28 mg/dl (40-60); LDL CHOLESTEROL 30 mg/dL (9-159); PHOSPHOROUS 3.1 mg/dL (2.5-4.9); SGOT/AST 7 IU/L (3-35); SGPT/ALT 19 U/L (12-78); TOTAL PROTEIN 5.8 gm/dL (6.4-8.2); TRIGLYCERIDES 401 mg/dl (<150); VLDL CHOLESTEROL 80 mg/dL (6-40)
[2019-05-28 07:23] LABS: BUN 25 mg/dl (7-24)
[2019-05-28 07:26] LABS: SODIUM 139 mmol/L (136-145)
[2019-05-28 08:00] VITALS: BP 110/86
[2019-05-28 08:17] LABS: VITAMIN D, 25-HYDROXY 20.2 ng/mL (30-100)
--- NOTE | 2019-05-28 08:25 | NUR ---
Dr. Howell notified of wound care recommendations.
--- NOTE | 2019-05-28 09:00 | NUR ---
Jockey Valet in to talk to patient. Patient states lives at home with family There are few steps in the home. Physician: resident clinic Pharmacy: [facility] services: none Patient's level of ADLs: INDEPENDENT Patient has working utilities: all working DME: none Follow-up physician's appointment after d/c: will be made by hospitalist nurse director upon discharged Does patient want to access PORTAL?: no Discharge plan discussed with patient, he lives at home with family is independent in adls and ambulation, he states he will return home when medically stable and denies any home needs, case management will follow. MEENA MEJIA
[2019-05-28 12:00] VITALS: BP 126/68
[2019-05-28 16:00] VITALS: BP 155/71
[2019-05-28 20:00] VITALS: BP 146/76
--- NOTE | 2019-05-28 21:24 | NUR ---
PATIENT IS RESTING IN BED WATCHING TV WITH EASY AND REGULAR RESPERS ON ROOM AIR. ASSESSMENT IS COMPLETE WITH NO S/S OF DISTRESS NOTED AT THIS TIME. BED IS LOW, LOCKED, AND CALL LIGHT IS WITHIN REACH. PATIENT IS REQUESTING SOMETHING TO HELP SLEEP TONIGHT. WILL CONTINUE TO MONITOR, SEE SHIFT ASSESSMENT.
--- NOTE | 2019-05-28 22:10 | NUR ---
PRN RESTORIL GIVEN AT THIS TIME FOR C/O INSOMNIA. CALL LIGHT IS WITHIN REACH, WILL MONITOR EFFECT.
[2019-05-29] VITALS: BP 135/71
[2019-05-29 06:24] LABS: BASO % 0.5 % (0.0-1.0); EOS # 0.1 10*3/uL (0.0-0.4); EOS % 1.7 % (1.0-4.0); HEMATOCRIT 41.6 % (42.0-52.0); HEMOGLOBIN 13.5 g/dl (14.0-18.0); LYMPH # 2.3 10*3/uL (1.3-4.4); LYMPH % 30.2 % (27.0-41.0); MEAN CELL VOLUME 90.2 fl (80.0-94.0); MEAN CORPUSCULAR HGB 29.3 pg (27.0-31.0); MEAN CORPUSCULAR HGB CONC 32.5 g/dl (33.0-37.0); MEAN PLATELET VOLUME 10.4 fl (9.6-12.3); MONO % 13.2 % (3.0-9.0); NEUT % 53.6 % (47.0-73.0); PLATELET COUNT AUTOMATED 185 10*3/uL (130-400); RED BLOOD COUNT 4.61 10*6/uL (4.50-5.90); RED CELL DISTRI WIDTH 11.9 % (0-14.5); WHITE BLOOD COUNT 7.4 10*3/uL (4.8-10.8)
[2019-05-29 06:39] LABS: BUN 18 mg/dl (7-24); CHLORIDE 106 mmol/L (98-107); CREATININE 1.07 mg/dL (0.70-1.30); POTASSIUM 4.8 mmol/L (3.5-5.1); SODIUM 137 mmol/L (136-145)
--- NOTE | 2019-05-29 07:15 | NUR ---
PATIENT RESTED PEACEFULLY THROUGHOUT THE NIGHT WITH EASY AND REGULAR RESPERS ON ROOM AIR.
[2019-05-29 07:17] LABS: BILIRUBIN NEGATIVE (NEGATIVE); BLOOD NEGATIVE (NEGATIVE); CLARITY CLEAR (CLEAR); COLOR YELLOW (YELLOW); GLUCOSE 2+ (NEGATIVE); KETONE NEGATIVE (NEGATIVE); LEUKO ESTERASE NEGATIVE (NEGATIVE); NITRITE NEGATIVE (NEGATIVE); SPECIFIC GRAVITY 1.025 (1.005-1.030); UROBILINOGEN 0.2 E.U./dl (0.2-1.0)
[2019-05-29 07:31] LABS: RBC 0-2 rbc/hpf (0-2); WBC 0-2 wbc/hpf (0-5)
[2019-05-29 08:00] VITALS: BP 160/72
[2019-05-29] MEDS ORDERED: LEVEMIR FL100 UNIT/1 SQ (11:07)
[2019-05-29] MEDS ORDERED: VITAMIN D32000 UNI1 PO (11:07)
[2019-05-29] MEDS ORDERED: FENOFIBRATE160 MG PO (11:07)
[2019-05-29] MEDS ORDERED: LISINOPRIL5 MG PO (11:07)
[2019-05-29] MEDS ORDERED: Humalog SQ (11:08)
[2019-05-29] MEDS ORDERED: DOXYCYCLINE100 M3 PO (11:31)
--- NOTE | 2019-05-29 12:48 | NUR ---
Discharge instructions reviewed with patient/family. Patient receptive and verbalizes understanding. Follow-up care arranged. Written instructions given to patient/family. HEPLOCK DISCONTINUED. PATIENT AWARE TO FOLLOW UP WITH ENDOCRINOLOGY OUTPATIENT. PT AWARE TO [employer]S DELIVERY DRIVER MEDICATIONS AT [facility]. WOUND PHOTOS TAKEN. AMBULATORY OFF FLOOR. DOMINIQUE HOFFMAN
== END 2019-05-29 12:48 | disposition home or self-care (01) | DRG 871 ==
LOC: ED 16:23 → 4E 19:30 → EDHOLD 19:30 → 4E 21:03 → 5E 05-28 17:35
PROVIDERS: Internal Medicine; Physician Assistant; Student in an Organized Health Care Education/Training Program; ADMIT Internal Medicine
DX: A41.9 Sepsis, unspecified organism (principal); N17.0 Acute kidney failure with tubular necrosis; E87.1 Hypo-osmolality and hyponatremia; L03.116 Cellulitis of left lower limb; L89.892 Pressure ulcer of other site, stage 2; I70.202 Unspecified atherosclerosis of native arteries of extremities, left leg; R65.20 Severe sepsis without septic shock; E11.621 Type 2 diabetes mellitus with foot ulcer; R23.8 Other skin changes; L97.529 Non-pressure chronic ulcer of other part of left foot with unspecified severity; E87.5 Hyperkalemia; E55.9 Vitamin D deficiency, unspecified; E11.65 Type 2 diabetes mellitus with hyperglycemia; Z89.421 Acquired absence of other right toe(s); Z87.891 Personal history of nicotine dependence; Z82.49 Family history of ischemic heart disease and other diseases of the circulatory system; Z80.1 Family history of malignant neoplasm of trachea, bronchus and lung; Z79.899 Other long term (current) drug therapy; Z79.82 Long term (current) use of aspirin

== ENCOUNTER → 2019-06-07 | Outpatient (CLI) | payer SELFPAY ==
[~2019-06-07] MED LIST changes: +FENOFIBRATE160 MG PO; +Humalog SQ; +LISINOPRIL5 MG PO; +NEURONTIN300 MG PO; +VITAMIN D32000 UNI1 PO; +ZETIA10 MG PO
== END | disposition home or self-care (01) ==
LOC: RESCLI 00:36
DX: E11.65 Type 2 diabetes mellitus with hyperglycemia (principal); E55.9 Vitamin D deficiency, unspecified; I10 Essential (primary) hypertension; E78.2 Mixed hyperlipidemia; E11.42 Type 2 diabetes mellitus with diabetic polyneuropathy; Z89.421 Acquired absence of other right toe(s); Z86.31 Personal history of diabetic foot ulcer; Z72.0 Tobacco use

== ENCOUNTER → 2020-01-03 | Outpatient (CLI) | payer SELFPAY | END | disposition home or self-care (01) | LOC: RESCLI 01:45 | DX: E78.2 Mixed hyperlipidemia (principal); E11.65 Type 2 diabetes mellitus with hyperglycemia; E55.9 Vitamin D deficiency, unspecified; I10 Essential (primary) hypertension ==

== ENCOUNTER → 2020-04-15 | Outpatient (CLI) | payer MEDICARE | END | disposition home or self-care (01) | LOC: RESCLI 00:38 | PROVIDERS: ATTEND Internal Medicine Nephrology | DX: E11.65 Type 2 diabetes mellitus with hyperglycemia (principal); E78.2 Mixed hyperlipidemia; I10 Essential (primary) hypertension; Z79.899 Other long term (current) drug therapy; Z23 Encounter for immunization; Z98.890 Other specified postprocedural states; Z87.891 Personal history of nicotine dependence ==

== ENCOUNTER → 2020-08-05 | Outpatient (CLI) | payer MEDICARE | END | disposition home or self-care (01) | LOC: RESCLI 01:55 | PROVIDERS: ATTEND Internal Medicine Nephrology | DX: I10 Essential (primary) hypertension (principal); E11.65 Type 2 diabetes mellitus with hyperglycemia; E78.2 Mixed hyperlipidemia; E55.9 Vitamin D deficiency, unspecified; Z12.11 Encounter for screening for malignant neoplasm of colon; Z12.2 Encounter for screening for malignant neoplasm of respiratory organs; Z79.82 Long term (current) use of aspirin; Z79.84 Long term (current) use of oral hypoglycemic drugs; Z79.899 Other long term (current) drug therapy; Z87.891 Personal history of nicotine dependence ==

== ENCOUNTER → 2021-11-29 | Outpatient (CLI) | payer MEDICARE ==
[2021-11-29 11:41] LABS: BASO # 0.1 10*3/uL (0.0-0.1); BASO % 0.6 % (0.0-1.0); EOS # 0.2 10*3/uL (0.0-0.4); EOS % 1.2 % (1.0-4.0); HEMATOCRIT 37.3 % (42.0-52.0); LYMPH # 1.4 10*3/uL (1.3-4.4); LYMPH % 11.1 % (27.0-41.0); MEAN CELL VOLUME 84.4 fl (80.0-94.0); MEAN CORPUSCULAR HGB 25.3 pg (27.0-31.0); MEAN PLATELET VOLUME 9.2 fl (9.6-12.3); MONO # 1.3 10*3/uL (0.1-1.0); MONO % 10.4 % (3.0-9.0); NEUT # 9.3 10*3/uL (2.3-7.9); NEUT % 76.2 % (47.0-73.0); PLATELET COUNT AUTOMATED 357 10*3/uL (130-400); RED BLOOD COUNT 4.42 10*6/uL (4.50-5.90); RED CELL DISTRI WIDTH 16.7 % (0-14.5); WHITE BLOOD COUNT 12.2 10*3/uL (4.8-10.8)
[2021-11-29 12:20] LABS: BUN 17 mg/dl (7-24); CHLORIDE 105 mmol/L (98-107); POTASSIUM 4.1 mmol/L (3.5-5.1); SODIUM 140 mmol/L (136-145)
[2021-11-29 12:34] LABS: CHOLESTEROL 102 mg/dL (<200); CREATININE 0.77 mg/dL (0.70-1.30); LDL CHOLESTEROL 62 mg/dL (9-159); TRIGLYCERIDES 62 mg/dl (<150)
== END | disposition home or self-care (01) ==
LOC: LAB 11:08
PROVIDERS: Student in an Organized Health Care Education/Training Program; ATTEND Family Medicine
DX: J98.11 Atelectasis (principal); R73.9 Hyperglycemia, unspecified; R53.83 Other fatigue; Z12.5 Encounter for screening for malignant neoplasm of prostate; I50.9 Heart failure, unspecified; I51.7 Cardiomegaly; J90 Pleural effusion, not elsewhere classified; E55.9 Vitamin D deficiency, unspecified

== ENCOUNTER → 2021-12-29 | Outpatient (CLI) | payer MEDICARE | END | disposition home or self-care (01) | LOC: CARD 12-27 10:30 | PROVIDERS: ATTEND Family Medicine | DX: I34.0 Nonrheumatic mitral (valve) insufficiency (principal); I50.9 Heart failure, unspecified; R06.02 Shortness of breath ==

== ENCOUNTER → 2022-01-07 | Outpatient (CLI) | payer MEDICARE | END | disposition home or self-care (01) | LOC: RESCLI 13:28 | PROVIDERS: ATTEND Internal Medicine | DX: E11.65 Type 2 diabetes mellitus with hyperglycemia (principal); I11.0 Hypertensive heart disease with heart failure; E55.9 Vitamin D deficiency, unspecified; I50.20 Unspecified systolic (congestive) heart failure; L85.3 Xerosis cutis; Z98.890 Other specified postprocedural states; Z87.891 Personal history of nicotine dependence; Z79.82 Long term (current) use of aspirin; Z79.84 Long term (current) use of oral hypoglycemic drugs; Z79.899 Other long term (current) drug therapy ==

== ENCOUNTER 2023-05-26 19:04 | Emergency (ER) | payer OTHER ==
[~2023-05-26] VITALS: Ht 175.2 cm; Wt 99.8 kg
[2023-05-26 20:09] LABS: BASO % 0.4 % (0.0-1.0); EOS # 0.1 10*3/uL (0.0-0.4); EOS % 1.2 % (1.0-4.0); HEMATOCRIT 44.2 % (42.0-52.0); LYMPH % 23.9 % (27.0-41.0); MEAN CELL VOLUME 85.8 fl (80.0-94.0); MEAN CORPUSCULAR HGB 29.5 pg (27.0-31.0); MEAN CORPUSCULAR HGB CONC 34.4 g/dl (33.0-37.0); MEAN PLATELET VOLUME 10.2 fl (9.6-12.3); MONO # 0.7 10*3/uL (0.1-1.0); MONO % 8.9 % (3.0-9.0); NEUT # 5.3 10*3/uL (2.3-7.9); NEUT % 64.3 % (47.0-73.0); PLATELET COUNT AUTOMATED 235 10*3/uL (130-400); RED BLOOD COUNT 5.15 10*6/uL (4.50-5.90); RED CELL DISTRI WIDTH 11.9 % (0-14.5); WHITE BLOOD COUNT 8.3 10*3/uL (4.8-10.8)
[2023-05-26 20:21] LABS: ACT PARTIAL THROMBO TIME 29.6 SECONDS (20.0-32.1)
[2023-05-26 20:35] LABS: ALKALINE PHOSPHATASE 103 U/L (46-116); BUN 25 mg/dl (9-23); CHLORIDE 99 mmol/L (98-107); LIPASE 116 U/L (12-53); SGPT/ALT 18 U/L (5-49); TOTAL PROTEIN 7.5 gm/dL (6.0-8.0)
[2023-05-26 20:49] LABS: ETHYL ALCOHOL < 3.0 mg/dl (<3)
[2023-05-26 22:41] LABS: BILIRUBIN Negative (Negative); BLOOD Trace-Lysed (Negative); CLARITY Clear (Clear); COLOR Yellow (Yellow); GLUCOSE 3+ (Negative); KETONE Negative (Negative); LEUKO ESTERASE Negative (Negative); NITRITE Negative (Negative); SPECIFIC GRAVITY >= 1.030 (1.001-1.030); UROBILINOGEN 0.2 E.U./dl (0.0-1.0)
[2023-05-26 22:48] LABS: URINE AMPHETAMINES Negative (1000ng/ml); URINE BARBITURATES Negative (200ng/ml); URINE BENZODIAZEPINES Negative (200ng/ml); URINE CANNABINOIDS (THC) Negative (50ng/ml); URINE COCAINE Positive (300ng/ml); URINE METHADONE Negative (300ng/ml); URINE OPIATES Negative (300ng/ml); URINE PHENCYCLIDINE Negative (25ng/ml)
[2023-05-26 22:49] LABS: FINE GRANULAR CAST 0-2; MUCOUS 1+; WBC 0-2 wbc/hpf (0-5)
== END 2023-05-27 00:09 | disposition home or self-care (01) ==
LOC: ED 19:04
PROVIDERS: Internal Medicine
DX: E11.65 Type 2 diabetes mellitus with hyperglycemia (principal); R06.02 Shortness of breath; F14.10 Cocaine abuse, uncomplicated; Z79.4 Long term (current) use of insulin; Z79.899 Other long term (current) drug therapy; Z79.82 Long term (current) use of aspirin; Z89.411 Acquired absence of right great toe; Z98.890 Other specified postprocedural states; Z87.891 Personal history of nicotine dependence; Z91.199 Patient's noncompliance with other medical treatment and regimen due to unspecified reason

== ENCOUNTER 2023-05-28 08:25 | Emergency (ER) | payer OTHER ==
[~2023-05-28] VITALS: Ht 175.2 cm; Wt 99.8 kg
== END 2023-05-28 12:30 | disposition left against medical advice (07) ==
LOC: ED 08:25
DX: R78.81 Bacteremia (principal); Z98.890 Other specified postprocedural states; Z87.891 Personal history of nicotine dependence; Z53.21 Procedure and treatment not carried out due to patient leaving prior to being seen by health care provider

== ENCOUNTER → 2023-09-27 | Outpatient (CLI) | payer OTHER ==
[~2023-09-27] MED LIST changes: +AMOX-CLAV 875-1 EACH PO; +BUMETANIDE1 MG PO; +CEFTRIAXONE2 G1 IV; +HYDROCODONE-AC1 EAC1 PO; +LISINOPRIL20 MG PO; +METRONIDAZOLE500 M1 PO; +VITAMIN D350 MC2 PO
[2023-09-27 13:12] LABS: BUN 22 mg/dl (9-23); CHLORIDE 105 mmol/L (98-107)
== END | disposition home or self-care (01) ==
LOC: LAB 12:33
PROVIDERS: ATTEND Internal Medicine Cardiovascular Disease
DX: I10 Essential (primary) hypertension (principal); D50.9 Iron deficiency anemia, unspecified

== ENCOUNTER 2023-10-09 21:27 | Inpatient (IN) | payer OTHER ==
[~2023-10-09] VITALS: Ht 175.2 cm; Wt 100.0 kg
[2023-10-09 21:28] VITALS: BP 152/84
[2023-10-09 21:53] VITALS: BP 133/74
[2023-10-09 21:53] LABS: BASO # 0.1 10*3/uL (0.0-0.1); BASO % 0.6 % (0.0-1.0); EOS # 0.1 10*3/uL (0.0-0.4); EOS % 1.2 % (1.0-4.0); HEMATOCRIT 38.6 % (42.0-52.0); LYMPH # 1.6 10*3/uL (1.3-4.4); LYMPH % 18.2 % (27.0-41.0); MEAN CORPUSCULAR HGB 25.2 pg (27.0-31.0); MEAN CORPUSCULAR HGB CONC 29.3 g/dl (33.0-37.0); MEAN PLATELET VOLUME 9.7 fl (9.6-12.3); MONO % 11.2 % (3.0-9.0); NEUT # 6.1 10*3/uL (2.3-7.9); NEUT % 68.2 % (47.0-73.0); PLATELET COUNT AUTOMATED 304 10*3/uL (130-400); RED BLOOD COUNT 4.49 10*6/uL (4.50-5.90); RED CELL DISTRI WIDTH 14.5 % (0-14.5); WHITE BLOOD COUNT 8.9 10*3/uL (4.8-10.8)
[2023-10-09 22:16] VITALS: BP 118/64
[2023-10-09 22:16] LABS: ALKALINE PHOSPHATASE 95 U/L (46-116); BUN 26 mg/dl (9-23); CHLORIDE 103 mmol/L (98-107); POTASSIUM 3.8 mmol/L (3.4-5.1); SGPT/ALT < 7 U/L (5-49); TOTAL PROTEIN 6.8 gm/dL (6.0-8.0)
[2023-10-09 22:36] VITALS: BP 128/77
[2023-10-09 23:00] VITALS: BP 128/80
[2023-10-10] MEDS ORDERED: BUMETANIDE 1 MG/4 ML VIAL IV ONE (00:20)
[2023-10-10 01:10] VITALS: BP 137/108
[2023-10-10 02:10] VITALS: BP 147/83
[2023-10-10 03:10] VITALS: BP 130/81
[2023-10-10] MEDS ORDERED: ACETAMINOPHEN 325 MG TAB PO PRN (03:35)
[2023-10-10] MEDS ORDERED: Acetaminophen/Hydrocodone 5 MG/325 MG TABLET PO PRN (03:35)
[2023-10-10] MEDS ORDERED: Magnesium Hydroxide 30 ML UDC PO PRN (03:35)
[2023-10-10] MEDS ORDERED: BISACODYL 10 MG SUPP R PRN (03:35)
[2023-10-10] MEDS ORDERED: BISACODYL 5 MG TAB PO PRN (03:35)
[2023-10-10] MEDS ORDERED: MORPHINE Sulfate 2 MG/ML SYR IV PRN (03:35)
[2023-10-10] MEDS ORDERED: ACETAMINOPHEN 650 MG SUPP R PRN (03:35)
[2023-10-10] MEDS ORDERED: DEXTROSE 10 % IN WATER 250 ML IV PRN (03:45)
[2023-10-10 07:05] VITALS: BP 156/91
[2023-10-10] MEDS ORDERED: INSULIN LISPRO 1 UNIT/0.01 ML SQ SCH (07:30)
[2023-10-10 08:12] VITALS: BP 132/84
[2023-10-10] MEDS ORDERED: EMPAGLIFLOZIN 10 MG TABLET PO SCH (10:00)
[2023-10-10] MEDS ORDERED: BUMETANIDE 1 MG/4 ML VIAL IV SCH (10:00)
[2023-10-10] MEDS ORDERED: ASPIRIN ENTERIC COATED 81 MG TAB PO SCH (10:00)
[2023-10-10] MEDS ORDERED: BUMETANIDE 2.5 MG/10 ML VIAL IV SCH (10:00)
[2023-10-10] MEDS ORDERED: Enoxaparin Sodium 40 MG/0.4 ML SYR SC SCH (10:00)
[2023-10-10] MEDS ORDERED: METOPROLOL SUCCINATE XR 25 MG TAB PO SCH ×2 (10:00→22:00)
[2023-10-10] MEDS ORDERED: APIXABAN 5 MG TAB PO SCH (10:00)
[2023-10-10 22:00] VITALS: BP 146/85
[2023-10-10] MEDS ORDERED: ATORVASTATIN CALCIUM 40 MG TABLET PO SCH (22:00)
[2023-10-11 06:25] LABS: BASO # 0.1 10*3/uL (0.0-0.1); BASO % 0.8 % (0.0-1.0); EOS # 0.2 10*3/uL (0.0-0.4); EOS % 1.9 % (1.0-4.0); HEMATOCRIT 37.8 % (42.0-52.0); LYMPH # 1.7 10*3/uL (1.3-4.4); LYMPH % 21.2 % (27.0-41.0); MEAN CELL VOLUME 85.5 fl (80.0-94.0); MEAN CORPUSCULAR HGB 25.3 pg (27.0-31.0); MEAN CORPUSCULAR HGB CONC 29.6 g/dl (33.0-37.0); MEAN PLATELET VOLUME 10.1 fl (9.6-12.3); MONO # 1.1 10*3/uL (0.1-1.0); MONO % 13.5 % (3.0-9.0); NEUT % 62.2 % (47.0-73.0); PLATELET COUNT AUTOMATED 313 10*3/uL (130-400); RED BLOOD COUNT 4.42 10*6/uL (4.50-5.90); RED CELL DISTRI WIDTH 14.7 % (0-14.5); WHITE BLOOD COUNT 7.9 10*3/uL (4.8-10.8)
[2023-10-11 06:40] LABS: POTASSIUM 3.6 mmol/L (3.4-5.1)
[2023-10-11 06:46] LABS: VITAMIN D, 25-HYDROXY 27.9 ng/mL (30-100)
[2023-10-11 08:00] VITALS: BP 132/74
[2023-10-11] MEDS ORDERED: Cholecalciferol 2,000 UNIT TABLET (50 MCG) PO SCH (10:00)
[2023-10-11] MEDS ORDERED: LISINOPRIL 20 MG TAB PO SCH (10:00)
[2023-10-11] MEDS ORDERED: BUMETANIDE 1 MG/4 ML VIAL IV SCH (10:00)
[2023-10-11 12:00] VITALS: BP 114/66
[2023-10-11 16:00] VITALS: BP 106/65
[2023-10-11 20:00] VITALS: BP 128/73
[2023-10-11] MEDS ORDERED: Insulin Glargine, Recombinan 1 UNIT/0.01 ML SC SCH (22:00)
[2023-10-12] VITALS: BP 114/69
[2023-10-12 05:42] LABS: POTASSIUM 3.5 mmol/L (3.4-5.1)
[2023-10-12] MEDS ORDERED: PERFLUTREN PROTEIN-A MICROSPHR 3 ML VIAL IV ONE (07:52)
[2023-10-12 08:00] VITALS: BP 104/70
[2023-10-12] MEDS ORDERED: METOPROLOL SUCC25 M2 PO (11:03)
[2023-10-12] MEDS ORDERED: LISINOPRIL20 MG PO (11:03)
[2023-10-12] MEDS ORDERED: BUMETANIDE1 MG PO (11:03)
[2023-10-12] MEDS ORDERED: Humalog SQ (11:03)
[2023-10-12] MEDS ORDERED: LANTUS SOL100 UNIT/1 SC (11:03)
[2023-10-12] MEDS ORDERED: JARDIANCE10 MG PO (11:03)
[2023-10-12] MEDS ORDERED: ATORVASTATIN CA40 M1 PO (11:03)
[2023-10-12] MEDS ORDERED: ELIQUIS5 M1 PO (11:03)
[2023-10-12] MEDS ORDERED: BUMETANIDE 1 MG TAB PO SCH (18:00)
== END 2023-10-12 11:27 | disposition home or self-care (01) | DRG 291 ==
LOC: ED 21:27 → EDHOLD 10-10 03:20 → 4E 10-10 21:30
PROVIDERS: Internal Medicine; Student in an Organized Health Care Education/Training Program; ADMIT Internal Medicine; ATTEND Internal Medicine
DX: I13.0 Hypertensive heart and chronic kidney disease with heart failure and stage 1 through stage 4 chronic kidney disease, or unspecified chronic kidney disease (principal); I50.23 Acute on chronic systolic (congestive) heart failure; N17.0 Acute kidney failure with tubular necrosis; R65.10 Systemic inflammatory response syndrome (SIRS) of non-infectious origin without acute organ dysfunction; J91.8 Pleural effusion in other conditions classified elsewhere; R18.8 Other ascites; D64.9 Anemia, unspecified; E66.3 Overweight; E11.65 Type 2 diabetes mellitus with hyperglycemia; E11.51 Type 2 diabetes mellitus with diabetic peripheral angiopathy without gangrene; I25.5 Ischemic cardiomyopathy; N18.32 Chronic kidney disease, stage 3b; K74.60 Unspecified cirrhosis of liver; E83.51 Hypocalcemia; I25.10 Atherosclerotic heart disease of native coronary artery without angina pectoris; E11.22 Type 2 diabetes mellitus with diabetic chronic kidney disease; S91.301A Unspecified open wound, right foot, initial encounter; X58.XXXA Exposure to other specified factors, initial encounter; I08.1 Rheumatic disorders of both mitral and tricuspid valves; Z79.82 Long term (current) use of aspirin; Z79.1 Long term (current) use of non-steroidal anti-inflammatories (NSAID); Z79.899 Other long term (current) drug therapy; Z95.1 Presence of aortocoronary bypass graft; I25.2 Old myocardial infarction; Z89.512 Acquired absence of left leg below knee; Z87.891 Personal history of nicotine dependence; Z95.5 Presence of coronary angioplasty implant and graft; Y93.89 Activity, other specified; Y92.89 Other specified places as the place of occurrence of the external cause; Y99.8 Other external cause status; Z89.421 Acquired absence of other right toe(s); Z80.1 Family history of malignant neoplasm of trachea, bronchus and lung; Z82.49 Family history of ischemic heart disease and other diseases of the circulatory system; Z68.32 Body mass index [BMI] 32.0-32.9, adult

== ENCOUNTER → 2024-01-09 | Outpatient (CLI) | payer OTHER ==
[~2024-01-09] MED LIST changes: +ATORVASTATIN CA40 M1 PO; +ELIQUIS5 M1 PO; +JARDIANCE10 MG PO; +LANTUS SOL100 UNIT/1 SC; +METOPROLOL SUCC25 M2 PO
== END | disposition home or self-care (01) ==
LOC: US 13:54
PROVIDERS: ATTEND Family Medicine
DX: N17.9 Acute kidney failure, unspecified (principal)

== ENCOUNTER → 2024-01-18 | Outpatient (CLI) | payer OTHER | END | disposition home or self-care (01) | LOC: RESCLI 01:42 | PROVIDERS: ATTEND Internal Medicine | DX: I11.0 Hypertensive heart disease with heart failure (principal); I50.9 Heart failure, unspecified; I25.10 Atherosclerotic heart disease of native coronary artery without angina pectoris; E78.5 Hyperlipidemia, unspecified; E11.65 Type 2 diabetes mellitus with hyperglycemia; I48.0 Paroxysmal atrial fibrillation; E55.9 Vitamin D deficiency, unspecified; Z98.890 Other specified postprocedural states; Z87.891 Personal history of nicotine dependence; Z82.49 Family history of ischemic heart disease and other diseases of the circulatory system; Z79.82 Long term (current) use of aspirin; Z79.01 Long term (current) use of anticoagulants; Z79.899 Other long term (current) drug therapy ==

== ENCOUNTER → 2024-10-02 | Outpatient (CLI) | payer MEDICARE ==
[~2024-10-02] MED LIST changes: +DOXYCYCLINE HY100 M3 PO
== END | disposition home or self-care (01) ==
LOC: ORTHO 02:15
PROVIDERS: ATTEND Orthopaedic Surgery
DX: S72.045A Nondisplaced fracture of base of neck of left femur, initial encounter for closed fracture (principal); Z47.89 Encounter for other orthopedic aftercare; X58.XXXA Exposure to other specified factors, initial encounter; Y93.89 Activity, other specified; Y92.89 Other specified places as the place of occurrence of the external cause; Y99.8 Other external cause status

== ENCOUNTER 2024-12-26 06:52 | Emergency (ER) | payer MEDICARE ==
[~2024-12-26] VITALS: Ht 175.2 cm; Wt 99.8 kg
[2024-12-26] MEDS ORDERED: diazePAM 5 MG TAB PO ONE (07:10)
[2024-12-26 07:24] LABS: BASO # 0.1 10*3/uL (0.0-0.1); BASO % 0.6 % (0.0-1.0); EOS # 0.2 10*3/uL (0.0-0.4); EOS % 1.3 % (1.0-4.0); MEAN CELL VOLUME 91.1 fl (80.0-94.0); MEAN CORPUSCULAR HGB 29.3 pg (27.0-31.0); MEAN PLATELET VOLUME 9.6 fl (9.6-12.3); MONO # 1.0 10*3/uL (0.1-1.0); MONO % 8.4 % (3.0-9.0); NEUT # 8.7 10*3/uL (2.3-7.9); NEUT % 75.0 % (47.0-73.0); NUCLEATED RED BLOOD CELL 0.0 % (0.0-0.0); NUCLEATED RED BLOOD CELL 0.0 10*3/uL (0.0-0.0); PLATELET COUNT AUTOMATED 193 10*3/uL (130-400); RED CELL DISTRI WIDTH 13.5 % (0-14.5)
[2024-12-26 07:45] LABS: BUN 19 mg/dl (9-23)
[2024-12-26] MEDS ORDERED: FUROSEMIDE 40 MG/4 ML VIAL IV ONE (09:15)
== END 2024-12-26 09:23 | disposition home or self-care (01) ==
LOC: ED 06:52
PROVIDERS: Emergency Medicine
DX: R42 Dizziness and giddiness (principal); I11.0 Hypertensive heart disease with heart failure; I50.9 Heart failure, unspecified; E78.5 Hyperlipidemia, unspecified; E11.9 Type 2 diabetes mellitus without complications; I25.10 Atherosclerotic heart disease of native coronary artery without angina pectoris; Z79.4 Long term (current) use of insulin; Z79.899 Other long term (current) drug therapy; Z98.890 Other specified postprocedural states